=== PATIENT | male | born 1960 | race Caucasian/White ===

== ENCOUNTER 2018-02-21 21:33 | Inpatient (IN) ==
[2018-02-21] MEDS ORDERED: *HR* LORazepam 2 MG/ML VIAL IVP PRN ×3 (22:55)
[2018-02-21] MEDS ORDERED: Ipratropium/Albuterol Neb 3 ML IH PRN (22:57)
--- NOTE | 2018-02-21 23:09 | Internal Med History&Physical ---
<Nahun Delaney - Last Filed: 02/22/18 02:48> Date of Encounter: 02/22/18 Time of Encounter: 23:38 Internal Medicine - H&P: HPI Chief complaint: "I couldn't hardly walk" Admitted From: Emergency Dept Plans for Post Hospital Care: Home History of present illness: Mr. Elizabeth is a 57 year old male with history of COPD, alcoholism and tobacco abuse who presented to [facility] due to complaint of hard time walking and "everything was really fuzzy in my head". He says that this generally all started Thursday although he has had a difficult time breathing for approximately a week and a half. He says that he has never officially been diagnosed with COPD, however he suspects that he has had COPD for quite some time due to his long history of excessive smoking. He says that it started with generalized shortness of breath which was worsening with exertion, however it has regressed to worsen shortness of breath with productive cough over the past week and a half. It is been apparently particularly bad since Thursday at which time he apparently tried to see his primary care physician but was unable to get in with him. He said that in addition of this he has had a "fuzziness" in his head, and describes some confusion associated with this. He said that he has never had anything like this before. Nothing makes any of these symptoms any better, exertion does seem to make him worse. He says that the symptoms have worsened so significantly that he has been unable to work or perform his typical ADLs. He said today his symptoms were so significant that he finally decided to present to [facility] for workup. Denies history of seizures or DTs from alcohol. Denies history of hyponatremia. At [facility], the patient had an initial set of labs which demonstrated sodium 108, potassium 3.7, chloride 68, bicarbonate 34, BUNs 3, serum creatinine 0.51, glucose 110. His CBC demonstrated WBC 8.0, hemoglobin 17.6, hematocrit 47.5, platelet 129. He had an ethanol level of 83, INR 1.3 and a pro BNP of 1231. He did have an ABG at that time which demonstrated an arterial blood pH 7.43, PaCO2 60, PaO2 76. He was found to have an oxygen saturation at that time of 81%. He did have a head CT which was negative for any intracranial process as well as a chest CT which showed signs for infectious right bronchiolitis. At that time he got 1 L of normal saline as well as Rocephin and Solu-Medrol and was started on 125 mL an hour of normal saline. PMH: Suspected COPD, Alcoholism Social Hx: Lives at home with a roomate, smokes 2 ppd, smokes 1 joint marijuana per day, drinks 18 beers per day. Surgical Hx: Left shoulder replacement Family Hx: unremarkable Review of ECW reveals that the patient has history of HTN with recent addition of Amlodipine and HCTZ about 3 weeks ago. Internal Medicine - H&P: Meds Allergy/AdvReac Type Severity Reaction Status Date / Time No Known Allergies Allergy Verified 02/21/18 23:12 All Systems PM: A 10-system review of systems was performed and is negative for pertinent findings except as documented above in the HPI. Review of systems: Constitutional: Denies fevers, chills, weight loss, generalized fatigue Head/Neck: Denies SAENZ, neck stiffness EENT: Denies vision changes/blurriness, rhinorrhea, congestion, sore throat CVS: Admits to dyspnea on exertion as well as peripheral edema and orthopnea. Pulm: Admits to shortness of breath with cough and sputum production GI: Denies abdominal pain, nausea, vomiting, diarrhea, constipation, melena, hematemasis : Denies dysuria, increased frequency, urgency, hematuria Heme: Denies ease of bleeding or bruising MSK: Denies joint pain, limited ROM Skin: Denies rashes, ulcers, color changes Neuro: Denies SAENZ, paresthesias, focal deficits, ataxia. Admits to confusion and altered mental status - Constitutional Exam: Gen: Vitals noted. No acute distress. Generally uncooperative and poor historian Eyes: anicteric sclerae, moist conjunctivae; no lid-lag; Pupils equal and reactive to light HENT: Atraumatic; oropharynx clear with moist mucous membranes and no mucosal ulcerations; normal hard and soft palate Neck: Trachea midline; supple, no thyromegaly or lymphadenopathy Cardiac: RRR, no murmur, +S1/S2 Pulmonary: Severe inspiratory and expiratory wheezing noted bilaterally Abdomen: Distended but nontender, no guarding. No masses or hepatosplenomegaly MSK: ROM intact, no joint swelling noted Extremities: 3+ BLE edema, nontender calf, no cyanosis or clubbing Skin: Normal temperature, turgor and texture; no rash, ulcers or subcutaneous nodules Neuro: moves all extremities, no focal deficits. Psych: Appropriate mood and behavior. A&Ox3 Internal Med - H&P Results - Labs CBC & Chem 7: 02/21/18 23:56 02/21/18 23:10 - Assessment and plan (1) Hyponatremia Current Visit: Yes Status: Acute Assessment and plan: Severe hypotonic hyponatremia, chronicity is unknown however suspected acute On arrival, serum sodium 108, serum chloride 68, measured serum osmolality 226. Appears hypervolemic on exam The patient does have a urine osmolality 131, urine sodium less than 10 however recent history of HCTZ use Etiology likely secondary to beer potomania versus thiazide induced hyponatremia Patient reports mild symptoms of disorientation and weakness, no evidence of seizure activity Started on 125mL/hr NS at [facility] prior to arrival, saw no elevation in Serum Sodium Plan: Consulted Nephrology, Per Dr. Correia - Continue 75mL/hr normal saline, give 20mg PO Lasix. Q2h Sodium checks. Closely monitor neuro function. Carefully watch sodium, do not allow to rise greater than 116. Goal 6-8meq correction per 24h (2) COPD exacerbation Current Visit: Yes Status: Acute Assessment and plan: Acute exacerbation of COPD Shortness of breath, Hypoxia with SPO2 81% Severe inspiratory and expiratory wheezing on exam ABG 7.43/60/76/39 Plan BiPAP as Needed Scheduled and PRN Duonebs Solu-Medrol 40q8h Continuous pulse oximetry Supplemental O2 (3) Acute encephalopathy Current Visit: Yes Status: Acute Assessment and plan: Acute metabolic encephalopathy secondary to hyponatremia Head CT is essentially negative We will correct electrolyte abnormalities slowly Monitor neural response (4) Alcoholism Current Visit: Yes Status: Acute Assessment and plan: Alcoholism, poor control The patient states that he drinks approximately 18 beers per day On arrival, Ethanol level 83. Last beer at approximately 4pm He has no known history of DTs or Seizures We will place the patient on CIWA protocol, ativan PRN (5) Tobacco abuse Current Visit: Yes Status: Acute Assessment and plan: PRN Nicotine Patches (6) DVT prophylaxis Current Visit: Yes Status: Acute Assessment and plan: SQ Heparin - Time Spent With Patient Total time spent is greater than 50% in coordination of care (as documented) at patient's floor/unit and/or counseling patient: <Kyrie Yousif - Last Filed: 02/22/18 03:40> Date of Encounter: 02/22/18 Internal Medicine - H&P: HPI History of present illness: All Systems PM: A 10-system review of systems was performed and is negative for pertinent findings except as documented above in the HPI. - Constitutional Vitals: Pulse Resp BP Pulse Ox 75 18 179/88 93 02/22/18 01:00 02/22/18 01:00 02/22/18 01:00 02/22/18 01:00 Internal Med - H&P Results - Labs CBC & Chem 7: 02/21/18 23:56 02/22/18 02:29 Labs: Short CBC 02/21/18 Range/Units 23:56 WBC 6.1 (4.3-11.1) K/mcL Hgb 17.6 H (12.9-16.9) g/dL Hct 46.9 (37.5-50.1) % Plt Count 130 L (140-400) K/mcL Neutrophils # 5.7 (1.6-8.9) K/mcL BMP 02/21/18 23:10 Sodium 108 L* Potassium 3.5 Chloride 65 L Carbon Dioxide 32 H BUN 4 L Creatinine 0.48 L Glucose 149 H Calcium 8.7 Liver Function 02/21/18 Range/Units 23:10 Total Bilirubin 1.7 H (0.3-1.0) mg/dL Direct Bilirubin 0.5 H (0.0-0.2) mg/dL AST 32 (13-39) Units/L ALT 23 (7-52) Units/L Alkaline Phosphatase 113 H (34-104) Units/L Albumin 4.3 (3.5-5.7) g/dL Urine 02/21/18 Range/Units 23:35 Urine Color Yellow (Yellow) Urine Clarity Clear (Clear) Urine pH 6.0 (5.0-8.0) pH Units Ur Specific [place] 1.016 (1.010-1.025) Urine Protein Negative (Neg-Trace) mg/dL Urine Glucose (UA) Normal (Normal) mg/dL - Time Spent With Patient Total time spent is greater than 50% in coordination of care (as documented) at patient's floor/unit and/or counseling patient: - Attending Attestation I performed a history and physical exam of the patient and discussed management with the resident. I reviewed the resident's note and agree with the documented findings and plan of care. Gerardo Elizabeth is a 57 year old man with HTN, active smoker and alcohol abuse who is here on transfer from [facility] where he initially went to for difficulty breathing. He was seen to have signs of a COPD exacerbation and received breathing treatments which helped him. Incidentally on labs he was seen to have a serum sodium of 108 and chloride of 64. His mental status remained intact. Unfortunately prior to transfer he did not receive any fluids and was only started on route. On arrival here he is AAO x 3 but is a poor historian. He knows he takes something for blood pressure but cannot specify. He is chronically non-adherent to medical care but drinks 18 cans of beer daily. Diffuse wheezing auscultated in both lung pringle. Abdomen is protuberant but soft and non-tender. Lower extremity edema noted. Will admit to ICU for closer monitoring. Obtain serum and urine osm, urine sodium, uric acid, tsh. Concern for alcohol and diuretic induced hyponatremia. Records show that 3 weeks ago he had a rather normal sodium level. Fortunately he has no neurologic manifestations at this time. Will start IV NS and repeat levels. Nephrology will be consulted prior to attempting diuresis with furosemide in conjunction with the saline. Treat COPD exacerbation with steroids and nebulizer therapy. [facility] protocol for high risk of alcohol withdrawal. DVT prophylaxis indicated. SUE BALDWIN.
[2018-02-21 23:41] LABS: Prothrombin Time 11.6 Seconds (9.4-12.1)
[2018-02-21 23:44] LABS: Activated Partial Thrombo Time 34.2 Seconds (26.0-36.0)
[2018-02-21] MEDS ORDERED: Azithromycin 500 MG in D5% in Water 250 ML IVPB SCH (23:45)
[2018-02-21 23:47] LABS: Bilirubin,Urine Negative (Negative); Blood,Urine Negative (Negative); Clarity,Urine Clear (Clear); Color,Urine Yellow (Yellow); Glucose,Urine (UA) Normal (Normal); Ketones,Urine Negative (Negative); Leukocyte Esterase,Urine Negative (Negative); Nitrite,Urine Negative (Negative); Protein,Urine Negative (Neg-Trace); Specific Gravity,Urine 1.016 (1.010-1.025); Urobilinogen,Urine Normal (Normal)
[2018-02-21 23:47] LABS: Alanine Aminotransferase 23 Units/L (7-52); Albumin 4.3 g/dL (3.5-5.7); Albumin/Globulin Ratio 1.5 (1.1-2.2); Alkaline Phosphatase 113 Units/L (34-104); Aspartate Amino Transferase 32 Units/L (13-39); BUN/Creatinine Ratio 8 (6-26); Bilirubin,Direct 0.5 mg/dL (0.0-0.2); Bilirubin,Indirect 1.2 mg/dL (0.0-1.2); Bilirubin,Total 1.7 mg/dL (0.3-1.0); Blood Urea Nitrogen 4 mg/dL (6-20); Calcium 8.7 mg/dL (8.6-10.3); Carbon Dioxide 32 mEq/L (23-29); Chloride 65 mEq/L (98-107); Ethanol 20 mg/dL (Less than 10); Globulin 2.9 g/dL (2.4-3.5); Glucose 149 mg/dL (70-105); Magnesium 1.8 mg/dL (1.6-2.6); Osmolality,Calculated 226 (280-300); Phosphorous 2.9 mg/dL (2.7-4.5); Potassium 3.5 mEq/L (3.5-5.1); Sodium 108 mEq/L (136-145); Total Protein 7.2 g/dL (6.4-8.9); Uric Acid 5.3 mg/dL (2.3-7.6); eGFR For Non-African Americans > 60 (> 60)
[2018-02-21 23:59] LABS: Thyroid Stimulating Hormone 1.445 mcIU/mL (0.340-5.600)
[2018-02-22] MEDS ORDERED: methylPREDNISolone 125 MG/2 ML VIAL IVP SCH
[2018-02-22 00:19] LABS: Basophils % 0.2 %; Eosinophils # 0.1 K/mcL (0.0-0.6); Eosinophils % 1.1 %; Hematocrit 46.9 % (37.5-50.1); Hemoglobin 17.6 g/dL (12.9-16.9); Lymphocytes # 0.2 K/mcL (0.6-4.6); Mean Corpuscular Hemoglobin 33.3 pg (28.0-33.3); Mean Corpuscular Volume 88.8 fL (83.0-100.0); Mean Platelet Volume 8.2 fL (9.4-12.4); Monocytes % 0.7 %; Neutrophils # 5.7 K/mcL (1.6-8.9); Platelet Count 130 K/mcL (140-400); Red Blood Count 5.28 M/mcL (4.19-5.50); Red Cell Distribution Width 12.1 % (11.5-14.5)
[2018-02-22] MEDS: Ipratropium/Albuterol Neb 3 ML IH SCH ×7 (00:21→23:43)
[2018-02-22 00:29] LABS: Mean Corpuscular HGB Conc 37.5 g/dL (31.6-35.5)
[2018-02-22] MEDS ORDERED: 0.9 % Sodium Chloride 1,000 ML IVC SCH ×2 (00:45→01:40)
[2018-02-22] MEDS ORDERED: *HR* LORazepam 2 MG/ML VIAL IVP ONE (01:26)
[2018-02-22] MEDS ORDERED: Furosemide 40 MG TABLET PO ONE (01:39)
[2018-02-22] MEDS: *HR* Heparin 5,000 UNIT/ML VIAL SQ SCH ×2 (06:05→17:53)
[2018-02-22] MEDS: Folic Acid 1 MG TABLET PO SCH (07:45)
[2018-02-22] MEDS: Thiamine (B-1) 100 MG TABLET PO SCH (07:45)
[2018-02-22] MEDS: Vitamin B Complex/Vit C/Vit E 1 EACH TABLET PO SCH (07:45)
[2018-02-22] MEDS: MethylPREDNISolone 40 MG/ML VIAL IVP SCH ×2 (07:45→17:53)
[2018-02-22] MEDS: amLODIPine 5 MG TABLET PO SCH (07:45)
--- NOTE | 2018-02-22 09:10 | Pulmonology Consult Note ---
<Maryellen Simms - Last Filed: 02/22/18 13:40> Date of Encounter: 02/22/18 Time of Encounter: 09:30 Assessment and Plan (1) Hyponatremia Current Visit: Yes Status: Acute Severe hypotonic hyponatremia. History of heavy alcohol use. Recently started on HCTZ for HTN. Likely secondary to beer potomania. Possibly thiazide-induced. On presentation, Na decreased at 108, serum osmolality decreased at 226, urine osmolality decreased at 131, urine sodium <10. Appears euvolemic. Was given 1L NS at [facility]. Was given NS 75ml/hr and Lasix 20, per Nephrology Dr. Correia. Na improved to 112. Discontinued NS. Fluid restrict to <1L. Closely monitor Na, check q2h. Goal 6-8meq correction per 24h. Do not allow to rise >116. Nephrology consulted. (2) COPD exacerbation Current Visit: Yes Status: Acute History of heavy tobacco use 2ppd. Suspected diagnosis of COPD. APOLINAR, productive cough, severe wheezing, hypoxia 81%. At [facility], ABG showed pH of 7.43, pCO2 of 60, and pO2 of 76. At [facility], CT chest showed right infectious bronchiolitis. Received rocephin and solumedrol at [facility]. BiPAP as Needed Scheduled and PRN Duonebs Start symbicort. Solu-Medrol 40q8h Continuous pulse oximetry Supplemental O2 Continue day 1 of azithromycin. (3) Acute encephalopathy Current Visit: Yes Status: Resolved Acute metabolic encephalopathy secondary to hyponatremia At [facility], CT head is negative. We will correct electrolyte abnormalities slowly Resolved. Patient is alert and oriented. (4) Alcoholism Current Visit: Yes Status: Chronic History of heavy alcohol use, ~18 beers a day. Last beer at on 02/21 16:00. No history of seizure or DT. At [facility], EtOH level of 83. On presentation to [place], EtOH level of 20. CIWA protocol Ativan PRN (5) Tobacco abuse Current Visit: Yes Status: Chronic PRN Nicotine Patches (6) DVT prophylaxis Current Visit: Yes Status: Acute SQ Heparin History of Present Illness Consult date: 02/22/18 History of present illness: 57 year old male with medical history of heavy alcohol use, ~18 beers a day. Heavy tobacco use, 2ppd, with suspected COPD. HTN, recently started on amlodipine and HCTZ. Patient presented to [facility] with complaint of confusion and feeling fuzzy in the head for 3 days. Also complained of difficulty breathing with productive cough for 1.5 weeks. At [facility], patient was found to be hyponatremic at 108 with EtOH level of 83. Patient had oxygen saturation 81% with ABG showing pH 7.43, pCO2 60, and pO2 76. Patient was given rocephin, solumedrol, and 1L NS. Patient was transferred to [place] ICU for hyponatremia and COPD exacerbation. Patient seen and examined. No acute events overnight. Patient is resting comfortably in bed with BiPAP. Patient is alert and oriented. Patient states he feels fine. States he feels normal, just tired. Denies any other complaints. Denies chest pain, shortness of breath, nausea/vomiting, abdominal pain, swelling. Past Med Surg Social Fam HX - Past Medical History Additional medical history: Admits to drinking 18 beers daily/ smoker - Social History Smoking Status: Current every day smoker Packs per day: 2 Smokeless Tobacco Status: No Alcohol use: heavy, recent Drug use: marijuana Medications and Allergies Albuterol Neb [Proventil Neb] 2.5 mg IH Q4HR PRN 02/22/18 [History] Amlodipine Besylate 5 mg PO DAILY 02/22/18 [History] RX: Albuterol Sulfate [Albuterol Inhaler] 2 puff IH Q6H PRN 02/22/18 [History] RX: Budesonide/Formoterol 160/4.5 [Symbicort 160/4.5] 2 puff IH BID 02/22/18 [History] hydroCHLOROthiazide [Hydrochlorothiazide] 25 mg PO DAILY 02/22/18 [History] Allergy/AdvReac Type Severity Reaction Status Date / Time No Known Allergies Allergy Verified 02/21/18 23:12 All Systems: The remainder of the systems were reviewed and are negative Physical Examination Vital Signs: Vital Signs, Last 4 Hours Temp Pulse Resp BP Pulse Ox 02/22/18 08:00 98.9 F 02/22/18 07:23 12 94 02/22/18 06:00 97.5 F L 71 16 171/95 97 General appearance: no acute distress, alert Eyes: nonicteric Effort: normal Inspection: normal Auscultation: bilateral: wheezes (worse in right lung ) Cardiovascular: regular rate and rhythm Gastrointestinal: normoactive bowel sounds, soft, non-tender Integumentary: normal Extremities: no cyanosis, no edema, no clubbing, pink and warm Musculoskeletal: no deformities normal mental status, pupils equal and round mood appropriate, affect normal Results - Laboratory Findings CBC and BMP: 02/21/18 23:56 02/22/18 10:42 PT/INR, D-dimer PT 11.6 Seconds (9.4-12.1) 02/21/18 23:10 Abnormal lab findings: Abnormal lab results Hgb 17.6 g/dL (12.9-16.9) H 02/21/18 23:56 MCHC 37.5 g/dL (31.6-35.5) H 02/21/18 23:56 Plt Count 130 K/mcL (140-400) L 02/21/18 23:56 MPV 8.2 fL (9.4-12.4) L 02/21/18 23:56 Lymphocytes # 0.2 K/mcL (0.6-4.6) L 02/21/18 23:56 Sodium 112 mEq/L (136-145) L* 02/22/18 06:41 Chloride 65 mEq/L (98-107) L 02/21/18 23:10 Carbon Dioxide 32 mEq/L (23-29) H 02/21/18 23:10 BUN 4 mg/dL (6-20) L 02/21/18 23:10 Creatinine 0.48 mg/dL (0.70-1.30) L 02/21/18 23:10 Glucose 149 mg/dL (70-105) H 02/21/18 23:10 POC Glucose 150 mg/dL (70-99) H 02/21/18 23:04 Serum Osmolality 226 mOsm/kg (280-300) L 02/22/18 00:51 Calculated Osmolality 226 (280-300) L 02/21/18 23:10 Total Bilirubin 1.7 mg/dL (0.3-1.0) H 02/21/18 23:10 Direct Bilirubin 0.5 mg/dL (0.0-0.2) H 02/21/18 23:10 Alkaline Phosphatase 113 Units/L (34-104) H 02/21/18 23:10 Urine Osmolality 131 mOsm/kg (300-1090) L 02/21/18 22:53 Ethyl Alcohol 20 mg/dL (Less than 10) H 02/21/18 23:10 - Clinical Findings Intake & Output: Intake & Output 02/21/18 02/22/18 02/22/18 23:59 07:59 15:59 Intake Total 925 / 925 Output Total 475 / 475 1500 / 1500 900 / 900 Balance -475 / -475 -575 / -575 -900 / -900 Weight 121.6 kg Consult Discharge Plan - Plan Referrals: Lopez Brito DO [Primary Care Provider] - <Tera Oh - Last Filed: 02/23/18 15:44> Date of Encounter: 02/23/18 All Systems: The remainder of the systems were reviewed and are negative Physical Examination Vital Signs: Vital Signs, Last 4 Hours Temp Resp Pulse Ox 02/22/18 08:00 98.9 F 02/22/18 07:23 12 94 Results - Laboratory Findings CBC and BMP: 02/23/18 04:06 02/23/18 14:43 PT/INR, D-dimer PT 11.6 Seconds (9.4-12.1) 02/21/18 23:10 Abnormal lab findings: Abnormal lab results Hgb 17.6 g/dL (12.9-16.9) H 02/21/18 23:56 MCHC 37.5 g/dL (31.6-35.5) H 02/21/18 23:56 Plt Count 130 K/mcL (140-400) L 02/21/18 23:56 MPV 8.2 fL (9.4-12.4) L 02/21/18 23:56 Lymphocytes # 0.2 K/mcL (0.6-4.6) L 02/21/18 23:56 Sodium 115 mEq/L (136-145) L* 02/22/18 08:44 Chloride 65 mEq/L (98-107) L 02/21/18 23:10 Carbon Dioxide 32 mEq/L (23-29) H 02/21/18 23:10 BUN 4 mg/dL (6-20) L 02/21/18 23:10 Creatinine 0.48 mg/dL (0.70-1.30) L 02/21/18 23:10 Glucose 149 mg/dL (70-105) H 02/21/18 23:10 POC Glucose 150 mg/dL (70-99) H 02/21/18 23:04 Serum Osmolality 226 mOsm/kg (280-300) L 02/22/18 00:51 Calculated Osmolality 226 (280-300) L 02/21/18 23:10 Total Bilirubin 1.7 mg/dL (0.3-1.0) H 02/21/18 23:10 Direct Bilirubin 0.5 mg/dL (0.0-0.2) H 02/21/18 23:10 Alkaline Phosphatase 113 Units/L (34-104) H 02/21/18 23:10 Urine Osmolality 131 mOsm/kg (300-1090) L 02/21/18 22:53 Ethyl Alcohol 20 mg/dL (Less than 10) H 02/21/18 23:10 - Clinical Findings Intake & Output: Intake & Output 02/21/18 02/22/18 02/22/18 23:59 07:59 15:59 Intake Total 925 / 925 Output Total 475 / 475 1500 / 1500 900 / 900 Balance -475 / -475 -575 / -575 -900 / -900 Weight 121.6 kg - Attending Attestation I examined this patient and my medical decision-making was reviewed with the Resident Physician. I agree with the documented findings, disposition and treatment plan as described except to the extent set forth below. Patient seen and examined. Labs, radiology, chart personally reviewed. Agree with resident's history and physical, assessment, plan with following comments: CAR FILLER: Patient follows commands, Pt has history of alcohol abuse and he is no CIWY protocol. Pulmonary: Acceptable oxygenation and ventilation and he has clinically AECOP. Pt to be on bronchodilators and start on steroid. Suspect sleep apnea that needs to be addressed as outpatient and he will need sleep study. His hypoxia most likely is chronic secondary to COPD, however at this time will be acute hypoxic respiratory failure and needs to be reevaluated when patient get ready to discharge home. Patient with significant smoking history and he was advised to quit smoking and drinking significant amount of alcohol. Cardiovascular: stable GI: Nutrition per dietary and GI prophylaxis per routine Heme: DVT prophylaxis per routine ID: Empiic Azithromycin for AECOPD Renal; urine out put and renal funtion reviewed. Fluid restriction and hold NS for now. Endorcine: blood glucose is monitored Lines: all lines checked and no evidence of infections Skin: skin care to prevent pressure ulcers per nursing routine care
--- NOTE | 2018-02-22 09:44 | Internal Med Progress Note ---
<Hima Gomez - Last Filed: 02/22/18 16:39> Hospitalist Progress Note - Encounter Date of Encounter: 02/22/18 Time of Encounter: 09:25 - Subjective Interval History: Mr. Elizabeth is a 57 year old male evaluated bedside who presented to [facility] on 02/21/18 with difficulty ambulating and "fuzzy in the head". Patient was found to have significant hyponatremia, value of 108 at 2310 02/21/18; most recently 114 at 1042 02/22/18, as well as a significant smoking history with suspected COPD and history of current alcoholism and marijuana use. Patient reports fatigue, forgetfulness, confusion, blurry vision and cough with clear, thick and moist sputum, but denies headache, lethargy, nausea, vomiting, dizziness, gait abnormalities, neck stiffness, shortness of breath, and abdominal pain. Patient also denies paresthesias, any focal neurological deficits, ataxia or altered mental status. No history of seizures, coma, obtundation or respiratory arrest. He was taking 75 mL/hr of normal saline, 20 mg PO Lasix one time and q2h serum sodium checks per nephrology with goal of 6-8 mEq Na increase over 24 hours. With current level of 114, Nephrology recommendation was to take patient off NS, and put patient back on NS or PO supplementation if sodium decreases. He is also taking thiamine, folic acid, B/C/E vitamins for alcoholism as well as BiPAP (85% O2 Sat upon admission, 95% at time of exam), methylprednisolone, and duoneb for COPD. 1 beer per meal prescribed to prevent alcohol withdrawal symptoms, as patient does not have desire to quit alcohol. Amlodipine, hydralazine and lopressor for chronic HTN (amlodipine and lopressor home meds) - Exam Vitals: Temp Pulse Resp BP Pulse Ox 98.9 F 71 12 171/95 94 02/22/18 08:00 02/22/18 06:00 02/22/18 07:23 02/22/18 06:00 02/22/18 07:23 Exam: General: awake, no acute distress HEENT: normocephalic, mucus membranes moist CV: regular rate and rhythm, no murmurs Pulm: Wheezes noted bilaterally on inspiration and expiration, BiPAP switched to nasal cannula Abdomen: distended, nontender, no guarding. Bowel sounds present Neuro: movement of all extremities noted, no focal deficits noted Psych: A&Ox3, normal mood and affect - Assessment and Plan (1) Hyponatremia Current Visit: Yes Status: Acute Assessment and Plan: Hypovolemic hypotonic hyponatremia suspected to be secondary to low solute intake due to alcohol abuse. Upon arrival at 2310 02/21/18, sodium was 108. Most recent at 1042 02/22/18 was 114. Patient reports mild disorientation and no weakness, no evidence of seizure activity. Urine osmolality 131, urine sodium <10.0, serum osmolality 226 Per Nephrology, normal saline was discontinued for patient due to 115 sodium this morning. Restart NS or PO supplementation if rise in sodium is low. Continue to closely monitor neuro function. Carefully watch sodium, do not allow to rise greater than 116. Recheck Sodium q2h Goal 6-8meq correction per 24h (2) COPD exacerbation Current Visit: Yes Status: Acute Assessment and Plan: Acute exacerbation of COPD suspected due to smoking Shortness of breath, Hypoxia with SPO2 81% on admission; currently SPO2 at 95% with BiPAP. Patient removed BiPAP, now on nasal cannula 6L, O2 normal Inspiratory and expiratory wheezes noted on exam, CT demonstrated infectious R bronchiolitis Continue nasal cannula as needed, scheduled and PRN Duonebs, methylprednisolone 40 q8h. For acute exacerbation, continue methylprednisolone 40 q8h for 1 more day and Zithromax 7 day course (received one dose Zithromax in 250mL D5 on ) Continuous pulse oximetry, Supplemental O2 (3) Acute encephalopathy Current Visit: Yes Status: Acute Assessment and Plan: Acute metabolic encephalopathy secondary to hyponatremia Alert and oriented x3 today, appears to be improving Head CT was reported to be essentially negative Correct electrolyte abnormalities slowly and monitor neural response (4) Alcoholism Current Visit: Yes Status: Chronic Assessment and Plan: Alcoholism, poor control The patient states that he drinks approximately 18 beers per day. Has no desire to quit. On arrival, Ethanol level 83. Last beer at approximately 1600 02/21/18 No known history of DTs or Seizures Patient counselled on cessation Add 1 beer with each meal; continue CIWA protocol and lorazepam PRN for seizures. Continue thiamine, folic acid and multivitamin (B/C/E) (5) DVT prophylaxis Current Visit: Yes Status: Acute Assessment and Plan: Patient is on 5000 units Heparin SQ q12h. Continue for DVT prophylaxis (6) Tobacco abuse Current Visit: Yes Status: Chronic Assessment and Plan: Nicotine patches PRN (7) Hypertension Current Visit: Yes Status: Chronic Assessment and Plan: Elevated most recently at 183/89. 10 mg IVP hydralazine given for HTN Recently started outpatient medications per H&P Continue home meds Amlodipine 5mg PO daily and Lopressor 5mg q6h PRN. Continue Hydralazine PRN Continue monitoring blood pressure DVT Prophylaxis: 5000 units SQ Heparin q12h - Time Spent with Patient Total time spent is greater than 50% in coordination of care (as documented) at patient's floor/unit and/or counseling patient: less than 15 minutes Internal Medicine: Result - Labs CBC & Chem 7: 02/21/18 23:56 02/22/18 14:04 Labs: Short CBC 02/21/18 Range/Units 23:56 WBC 6.1 (4.3-11.1) K/mcL Hgb 17.6 H (12.9-16.9) g/dL Hct 46.9 (37.5-50.1) % Plt Count 130 L (140-400) K/mcL Neutrophils # 5.7 (1.6-8.9) K/mcL BMP 02/21/18 02/22/18 02/22/18 23:10 02:29 04:36 Sodium 108 L* 110 L* 112 L* Potassium 3.5 Chloride 65 L Carbon Dioxide 32 H BUN 4 L Creatinine 0.48 L Glucose 149 H Calcium 8.7 02/22/18 06:41 Sodium 112 L* Potassium Chloride Carbon Dioxide BUN Creatinine Glucose Calcium Liver Function 02/21/18 Range/Units 23:10 Total Bilirubin 1.7 H (0.3-1.0) mg/dL Direct Bilirubin 0.5 H (0.0-0.2) mg/dL AST 32 (13-39) Units/L ALT 23 (7-52) Units/L Alkaline Phosphatase 113 H (34-104) Units/L Albumin 4.3 (3.5-5.7) g/dL Urine 02/21/18 Range/Units 23:35 Urine Color Yellow (Yellow) Urine Clarity Clear (Clear) Urine pH 6.0 (5.0-8.0) pH Units Ur Specific [place] 1.016 (1.010-1.025) Urine Protein Negative (Neg-Trace) mg/dL Urine Glucose (UA) Normal (Normal) mg/dL - ABG Interpretation ABG results: PT/INR, D-dimer PT 11.6 Seconds (9.4-12.1) 02/21/18 23:10 Consult Discharge Plan - Plan Referrals: Lopez Brito, [Primary Care Provider] - <John Short - Last Filed: 02/22/18 20:10> Hospitalist Progress Note - Encounter Date of Encounter: 02/22/18 - Exam Vitals: Temp Pulse Resp BP Pulse Ox 98.9 F 74 16 144/76 95 02/22/18 19:50 02/22/18 19:00 02/22/18 19:51 02/22/18 19:51 02/22/18 19:51 - Assessment and Plan (1) Acute metabolic encephalopathy Current Visit: Yes Status: Acute Assessment and Plan: Slowly improving with correction of sodium. (2) Hyponatremia Current Visit: Yes Status: Acute (3) Hypertension Current Visit: Yes Status: Chronic (4) COPD exacerbation Current Visit: Yes Status: Acute (5) Chronic alcohol abuse Current Visit: Yes Status: Chronic Assessment and Plan: Monitoring for sign of withdrawal. (6) Tobacco abuse Current Visit: Yes Status: Chronic - Time Spent with Patient Total time spent is greater than 50% in coordination of care (as documented) at patient's floor/unit and/or counseling patient: 25 - 35 minutes Internal Medicine: Result - Labs CBC & Chem 7: 02/21/18 23:56 02/22/18 18:27 Labs: Short CBC 02/21/18 Range/Units 23:56 WBC 6.1 (4.3-11.1) K/mcL Hgb 17.6 H (12.9-16.9) g/dL Hct 46.9 (37.5-50.1) % Plt Count 130 L (140-400) K/mcL Neutrophils # 5.7 (1.6-8.9) K/mcL BMP 02/21/18 02/22/18 02/22/18 23:10 02:29 04:36 Sodium 108 L* 110 L* 112 L* Potassium 3.5 Chloride 65 L Carbon Dioxide 32 H BUN 4 L Creatinine 0.48 L Glucose 149 H Calcium 8.7 02/22/18 02/22/18 02/22/18 06:41 08:44 10:42 Sodium 112 L* 115 L* 114 L* Potassium Chloride Carbon Dioxide BUN Creatinine Glucose Calcium 02/22/18 02/22/18 02/22/18 14:04 16:41 18:27 Sodium 116 L* 118 L* 119 L* Potassium Chloride Carbon Dioxide BUN Creatinine Glucose Calcium Liver Function 02/21/18 Range/Units 23:10 Total Bilirubin 1.7 H (0.3-1.0) mg/dL Direct Bilirubin 0.5 H (0.0-0.2) mg/dL AST 32 (13-39) Units/L ALT 23 (7-52) Units/L Alkaline Phosphatase 113 H (34-104) Units/L Albumin 4.3 (3.5-5.7) g/dL Urine 02/21/18 Range/Units 23:35 Urine Color Yellow (Yellow) Urine Clarity Clear (Clear) Urine pH 6.0 (5.0-8.0) pH Units Ur Specific [place] 1.016 (1.010-1.025) Urine Protein Negative (Neg-Trace) mg/dL Urine Glucose (UA) Normal (Normal) mg/dL - ABG Interpretation ABG results: PT/INR, D-dimer PT 11.6 Seconds (9.4-12.1) 02/21/18 23:10 - Attending Attestation The history, physical exam, and medical decision making was performed by the medical student either while I was physically present and actively involved or I personally re-performed the exam and medical decision making. I have verified the accuracy of the medical student's documentation with regards to the history, physical exam findings, and medical decision making on 02/22/18. Mr Elizabeth is currently admitted for severe hyponatremia. He remains moderate to high risk due to potential for worsening clinical status. Mr Elizabeth is alert and interactive. His sodium is increasing slowly. His BP is increasing but he has no tremor or other sign of withdrawal. No fever or chills. No CP or SOB. Exam alert Comfortable in bed Mucus membranes dry Heart distant and regular. Not tachy Lungs diminished Abd distended. Soft. Nontender Moves all extremities. No focal deficit. Pulses palpable I/P 1. Hyponatremia - slowly increasing. Appreciate nephro input. 2. ETOH abuse - monitoring for withdrawal 3. COPD exac - on steroids and abx. Aerosols and oxygen. 4. Metabolic encephalopathy - seems to be improving with correction of sodium. 5. HTN - adjusting meds. May be early ETOH withdrawal. Further diagnoses and plan as above. <Hima Gomez D - Last Filed: 02/22/18 16:39> (7) Hypertension Qualifiers: Hypertension type: essential hypertension Qualified Code(s): I10 - Essential (primary) hypertension <John Short - Last Filed: 02/22/18 20:10> (3) Hypertension Qualifiers: Hypertension type: essential hypertension Qualified Code(s): I10 - Essential (primary) hypertension
[2018-02-22] MEDS ORDERED: *HR* Metoprolol 5 MG/5 ML VIAL IVP PRN (09:49)
[2018-02-22] MEDS: Budesonide/Formoterol 160/4.5 1 PUFF INH IH SCH ×2 (11:05→19:51)
[2018-02-22] MEDS ORDERED: *HR* Metoprolol 5 MG/5 ML VIAL IVP ONE (13:37)
--- NOTE | 2018-02-22 13:39 | Nephrology Consult Note ---
<IoanaadeleShubham tinajero - Last Filed: 02/22/18 15:24> Date of Encounter: 02/22/18 Time of Encounter: 11:00 Assessment and Plan (1) Hyponatremia Current Visit: Yes Status: Acute - Noted hyponatremia at 108 on presentation - Etiology at this time is most likely consistent with acute hypovolemic hyponatremia - Likely secondary to low solute intake with chronic alcoholism - Sodium improved from presentation from 108 to 110/112/112/115--- 114 most recently - Started on NS with improvement as well as lasix 20 mg PO once - NS has been shut off due to rapid improvement - Goal Na of around 116 in the first 24 hours - urine Na of <20 indicates hypovolemia, Urine osm <200 indicates appropriate compensation - Recent Na of 133 on 02/03/18, acute in nature Plan - Patient is tolerating diet, recommend continuing PO intake and monitoring - Continue to hold NS with q2 hour Na checks - Consider restarting NS or PO supplementation if remains low. Will continue to follow - Does not appear fluid overloaded on exam - Will also check TSH with AM labs. (2) Acute encephalopathy Current Visit: Yes Status: Acute - Likely secondary to alcohol intoxication vs hyponatremia - Continue management as above - Supportive care for alcholism. (3) Alcoholism Current Visit: Yes Status: Chronic - Reportedly drinks 18 beers daily, possibly more - [facility] protocol in place - Continue folic acid and thiamine. - Further management per primary team (4) Hypertension Current Visit: Yes Status: Chronic - Elevated most recently at 183/89 - Recently started outpatient medications per H&P - Amlodipine ordered - Hydralazine and lopressor both ordered by primary team Qualifiers: Hypertension type: essential hypertension Qualified Code(s): I10 - Essential (primary) hypertension History of Present Illness - Reason for Consult Consult date: 02/22/18 hyponatremia - Chief Complaint dizziness - History of Present Illness Mr. Elizabeth presented to the emergency room in [facility] due to complaints of "I cannot hardly walk". Nephrology was consulted on 02/22/18 for assistance of management of hyponatremia. Mr. Elizabeth has a past medical history of COPD, alcoholism, tobacco abuse, h ypertension. He states he drinks approximately 18 beers per night however per nursing report, his daughter stated that it is likely more than this. Per chart review, patient reportedly had a complaint of a hard time walking and everything was "really fuzzy in his head ". Onset of symptoms was reportedly Thursday and he also had complaint of shortness of breath for the last week and a half. Short ness breath was worsened with exertion and also was associated with a productive cough. He also does describe some confusion and he has never experienced anything like this in the past. He denies any histories of seizures or alcohol withdrawal. In the [facility] emergency room, labs were significant for sodium of 108, potassium 3.7, chloride 68, bicarbonate 34, BUNs/creatinine of 3/0.51. Glucose was within normal limits. Hemoglobin was also elevated at 17.6 and hematocrit was borderline at 47.5, platelets were 129. Ethanol level was elevated at 83. INR was 1.3 and BNP was 1231. Arterial blood gas was obtained and showed metabolic alkalosis. Head CT was negative for any acute process and chest CT was also obtained which showed signs for infectious right bronchiolitis. He did receive 1 L of normal saline and was started on maintenance saline. On presentation to [place], he was admitted directly to the ICU. Vital signs were significant for a respiratory rate of 20 and he was tolerating 93% oxygen on 4 L nasal cannula. Further labs were obtained and again demonstrated a sodium of 108, chloride 65, carbonate 32, unremarkable kidney function, serum osmolality measured at 226, normal liver function except for mildly elevated alkaline phosphatase at 113, urine osmolality at 131 and urine sodium less than 10. Today during interview, patient states that he is feeling better. He is denying any symptoms at this time. Denies any confusion, dizziness, shortness of breath, pain. He states that normally he does have a good appetite and diet which is actually high in salt. When asked about the last couple days, he does state that his diet has been less. He states that he drinks about 18 beers per day and has not been eating well. He is generally cooperative with exam but s eems to be have difficulty remembering facts and recalling recent events. He is also difficult to understand secondary to slurring. Past Med Surg Social Fam HX - Past Medical History Additional medical history: Admits to drinking 18 beers daily/ smoker - Social History Smoking Status: Current every day smoker Packs per day: 2 Smokeless Tobacco Status: No Alcohol use: heavy, recent Drug use: marijuana Medications and Allergies Albuterol Neb [Proventil Neb] 2.5 mg IH Q4HR PRN 02/22/18 [History] Albuterol Sulfate [Albuterol Inhaler] 2 puff IH Q6H PRN 02/22/18 [History] Amlodipine Besylate 5 mg PO DAILY 02/22/18 [History] Budesonide/Formoterol 160/4.5 [Symbicort 160/4.5] 2 puff IH BID 02/22/18 [History] hydroCHLOROthiazide [Hydrochlorothiazide] 25 mg PO DAILY 02/22/18 [History] Allergy/AdvReac Type Severity Reaction Status Date / Time No Known Allergies Allergy Verified 02/21/18 23:12 Review of Systems ROS unobtainable: due to mental status All Systems review (narrative): - Admits to confusion. Constitutional: Denies fevers, chills, weight loss, generalized fatigue - Head/Neck: Denies SAENZ, neck stiffness - CVS: Denies chest pain, palpitations, GALVAN, orthopnea, edema, PND, - Pulm: shortness of breath, cough, sputum. Denies hematemesis, wheezing - GI: Denies abdominal pain, anorexia, nausea, vomiting, diarrhea, constipation, melena - : Denies dysuria, increased frequency, urgency, hematuria, - Skin: Denies rashes, ulcers, color changes, - Neuro: Admits to difficulty walking. Denies SAENZ, paresthesias, focal deficits, ataxia, Exam - Vital Signs Vital signs: Initial Vital Signs Pulse Resp BP Pulse Ox 73 20 147/80 93 02/21/18 23:00 02/21/18 23:00 02/21/18 23:00 02/21/18 23:00 Vital Signs - Last 8 Hours Temp Pulse Resp BP Pulse Ox 02/22/18 13:22 99.3 F 84 14 183/89 96 02/22/18 12:00 98.3 F 78 14 156/96 91 02/22/18 11:08 16 93 02/22/18 10:43 82 166/88 94 02/22/18 10:38 81 14 175/108 95 02/22/18 08:00 98.9 F 02/22/18 07:23 12 94 02/22/18 06:00 97.5 F L 71 16 171/95 97 Intake and Output 02/21/18 02/22/18 02/22/18 23:59 07:59 15:59 Intake Total 925 / 925 Output Total 475 / 475 1500 / 1500 1625 / 1625 Balance -475 / -475 -575 / -575 -1625 / -1625 Intake: IV Fluids 925 / 925 0.9 % Sodium Chloride 1,000 ML 675 / 675 @ 75 mls/hr IVC .[id number] [facility] Rx #:[id number] Zithromax 500 mg In Dextrose 5% 250 / 250 250 ML @ 252 mls/hr IVPB Q24H [facility] Rx#:[id number] Output: Urine 475 / 475 1500 / 1500 1625 / 1625 Other: Weight 121.6 kg Blood Glucose* 150 - General Appearance Exam: Gen.: Vitals noted. No acute distress. Alert and oriented to self. Disheveled, poor grooming, slurs some words HEENT: PERRL/EOMI, oropharynx clear, Normocephalic, atraumatic, MMM Cardiac: RRR, no murmur, +S1/S2 Pulmonary: Coarse breath sounds diffusely with bilateral lower wheezes. equal chest expansion Abdomen: soft, nontender, BS noted, no guarding, no rebound. No appreciated hepatosplenomegaly MSK: no joint swelling noted Extremities: 1+ BLE edema, nontender calf, no cyanosis or clubbing Neuro: A&Ox1, moves all extremities, no focal deficits Psych: Appropriate mood and behavior Results - Lab Results 02/21/18 23:56 02/22/18 14:04 Most recent lab results Calcium 8.7 mg/dL (8.6-10.3) 02/21/18 23:10 Phosphorus 2.9 mg/dL (2.7-4.5) 02/21/18 23:10 Magnesium 1.8 mg/dL (1.6-2.6) 02/21/18 23:10 Urine Sodium < 10.0 mEq/L 02/21/18 22:53 Consult Discharge Plan - Plan Referrals: Lopez Brito DO [Primary Care Provider] - <Elizabeth Hall - Last Filed: 02/22/18 19:37> Date of Encounter: 02/22/18 Exam - Vital Signs Vital signs: Initial Vital Signs Pulse Resp BP Pulse Ox 73 20 147/80 93 02/21/18 23:00 02/21/18 23:00 02/21/18 23:00 02/21/18 23:00 Vital Signs - Last 8 Hours Temp Pulse Resp BP Pulse Ox 02/22/18 17:40 98.1 F 75 14 146/69 91 02/22/18 16:26 98.4 F 82 14 160/79 95 02/22/18 15:23 20 93 02/22/18 15:14 98.5 F 77 12 176/96 93 02/22/18 14:34 73 14 161/86 89 02/22/18 13:22 99.3 F 84 14 183/89 96 02/22/18 12:00 98.3 F 78 14 156/96 91 Intake and Output 02/22/18 02/22/18 02/22/18 07:59 15:59 23:59 Intake Total 925 / 925 Output Total 1500 / 1500 2195 / 2195 300 / 300 Balance -575 / -575 -2195 / -2195 -300 / -300 Intake: IV Fluids 925 / 925 0.9 % Sodium Chloride 1,000 ML 675 / 675 @ 75 mls/hr IVC .[id number] [facility] Rx #:[id number] Zithromax 500 mg In Dextrose 5% 250 / 250 250 ML @ 252 mls/hr IVPB Q24H [facility] Rx#:[id number] Output: Urine 1500 / 1500 2195 / 2195 300 / 300 Results - Lab Results 02/21/18 23:56 02/22/18 18:27 Most recent lab results Calcium 8.7 mg/dL (8.6-10.3) 02/21/18 23:10 Phosphorus 2.9 mg/dL (2.7-4.5) 02/21/18 23:10 Magnesium 1.8 mg/dL (1.6-2.6) 02/21/18 23:10 Urine Sodium < 10.0 mEq/L 02/21/18 22:53 - Attending Attestation I examined this patient and my medical decision-making was reviewed with the Resident Physician. I agree with the documented findings, disposition and treatment plan as described except to the extent set forth below. Pt seen and examined and in brief; 57 y o male with PMH of HTN and EtOH abuse (at least 18 beers a day) admitted with altered mental status with sodium of 108, previously 133 earlier this month. Labs consistent with hypovolemia hyponatremia in the setting of beer potomania with recent decreased po intake. Exam showed older male who appeared older than stated age, lung with good areation and trace LE edema noted. Agree with NS initially but will stop due to rapid improvement. Continue serial sodium checks but not as frequently q6 adeq uate. Continue give regular diet with salt packets. Continue EtOH withdrawal protocol per primary team along with MVI, thamine and folate.
[2018-02-22] MEDS: Beer can PO SCH (17:20)
[2018-02-23] MEDS: MethylPREDNISolone 40 MG/ML VIAL IVP SCH ×4 (00:02→22:58)
[2018-02-23] MEDS: Ipratropium/Albuterol Neb 3 ML IH SCH ×6 (03:41→22:58)
[2018-02-23 04:45] LABS: Hematocrit 45.6 % (37.5-50.1); Immature Granulocytes % 0.7 % (0-4); Lymphocytes # 0.2 K/mcL (0.6-4.6); Lymphocytes % 3.5 %; Mean Corpuscular HGB Conc 36.4 g/dL (31.6-35.5); Mean Corpuscular Hemoglobin 33.4 pg (28.0-33.3); Mean Corpuscular Volume 91.8 fL (83.0-100.0); Mean Platelet Volume 8.2 fL (9.4-12.4); Monocytes # 0.2 K/mcL (0.0-1.3); Neutrophils # 5.2 K/mcL (1.6-8.9); Platelet Count 135 K/mcL (140-400); Red Blood Count 4.97 M/mcL (4.19-5.50); Red Cell Distribution Width 12.6 % (11.5-14.5); Segmented Neutrophils % 92.8 %
[2018-02-23 05:15] LABS: BUN/Creatinine Ratio 13 (6-26); Blood Urea Nitrogen 7 mg/dL (6-20); Calcium 9.1 mg/dL (8.6-10.3); Carbon Dioxide 44 mEq/L (23-29); Chloride 76 mEq/L (98-107); Glucose 163 mg/dL (70-105); Osmolality,Calculated 262 (280-300); Potassium 3.5 mEq/L (3.5-5.1); Sodium 125 mEq/L (136-145); eGFR For Non-African Americans > 60 (> 60)
[2018-02-23 05:18] LABS: Hemoglobin 16.6 g/dL (12.9-16.9)
[2018-02-23] MEDS ORDERED: Azithromycin 250 MG in D5% in Water 250 ML IVPB SCH ×2 (06:00→06:15)
[2018-02-23] MEDS: *HR* Heparin 5,000 UNIT/ML VIAL SQ SCH ×2 (06:13→16:44)
[2018-02-23] MEDS: Budesonide/Formoterol 160/4.5 1 PUFF INH IH SCH ×3 (07:20→20:09)
[2018-02-23] MEDS: Thiamine (B-1) 100 MG TABLET PO SCH (07:47)
[2018-02-23] MEDS: Folic Acid 1 MG TABLET PO SCH (07:47)
[2018-02-23] MEDS: amLODIPine 5 MG TABLET PO SCH (07:47)
[2018-02-23] MEDS: Beer can PO SCH (07:47)
[2018-02-23] MEDS: Vitamin B Complex/Vit C/Vit E 1 EACH TABLET PO SCH (07:47)
--- NOTE | 2018-02-23 08:00 | Pulmonology Progress Note ---
Addendum entered and electronically signed by Maryellen Simms 02/23/18 13:00: Adding another diagnosis: 8) Acute Respiratory Failure with Hypercapnia and Hypoxia Secondary to COPD exacerbation See plan #2 Original Note: <Maryellen iSmms - Last Filed: 02/23/18 11:25> Date of Encounter: 02/23/18 Time of Encounter: 08:00 Assessment and Plan (1) Hyponatremia Current Visit: Yes Status: Acute Severe hypotonic hyponatremia. History of heavy alcohol use. Recently started on HCTZ on 02/16. Likely secondary to beer potomania and impaired ADH suppression. Possibly thiazide-induced. On presentation, Na decreased at 108, serum osmolality decreased at 226, urine osmolality decreased at 131, urine sodium <10. Appears euvolemic on exam. Was given 1L NS at [facility]. Was given NS 75ml/hr and Lasix 20, per Nephrology Dr. Correia. Na improved to 112. Discontinued NS and fluid restricted to <1L. Last night, Na improved to 121. This morning, Na level of 125. Continue fluid restriction <1L today. Closely monitor Na, check q2h. Goal 6-12meq correction per 24h. Nephrology consulted and following. Na improved and patient feeling better. Will transfer to floor today. Critical Care will sign out at this time. (2) COPD exacerbation Current Visit: Yes Status: Acute History of heavy tobacco use 2ppd. Suspected diagnosis of COPD. Presented with APOLINAR, productive cough, severe wheezing, hypoxia 81%. At [facility], ABG showed pH of 7.43, pCO2 of 60, and pO2 of 76. At [facility], CT chest showed right infectious bronchiolitis. Received rocephin and solumedrol at [facility]. BiPAP as Needed Scheduled and PRN Duonebs Symbicort. Solu-Medrol 40q8h - day 2. Continuous pulse oximetry Supplemental O2 Continue day 2 of azithromycin. (3) Acute encephalopathy Current Visit: Yes Status: Resolved Acute metabolic encephalopathy secondary to hyponatremia and alcohol intoxication At [facility], CT head is negative. We will correct electrolyte abnormalities slowly Encephalopathy is resolved. Patient is alert and oriented. (4) Alcoholism Current Visit: Yes Status: Chronic History of heavy alcohol use, ~18 beers a day. Last beer on 02/21 16:00. No history of seizure or DT. At [facility], EtOH level of 83. On presentation to [place], EtOH level of 20. [facility] protocol Ativan PRN Folic acid, thiamine, multivitamin Social work consulted. (5) Hypertension Current Visit: Yes Status: Chronic History of HTN. Recently started on Norvasc and HCTZ. Hold HCTZ Continue amlodipine Lopressor prn. Qualifiers: Hypertension type: essential hypertension Qualified Code(s): I10 - Essential (primary) hypertension (6) Tobacco abuse Current Visit: Yes Status: Chronic PRN Nicotine Patches (7) DVT prophylaxis Current Visit: Yes Status: Acute SQ Heparin Subjective Interval history: Patient seen and examined. No acute events overnight. Patient is resting comfortably in bed and has eaten his breakfast. Patient states that hes fine. Patient denies any complaints and states he feels normal. States he wants to go home. Denies chest pain, shortness of breath, confusion, dizziness, fatigue, abdominal pain, nausea/vomiting, swelling. Patient feeling much better and Na is improved. Will transfer out of ICU to floor today. Objective PUL Vital signs: Last Vital Signs Temp 98.1 F 02/23/18 07:00 Pulse 75 02/23/18 07:00 Resp 16 02/23/18 07:20 BP 141/78 02/23/18 07:20 Pulse Ox 93 02/23/18 07:20 General appearance: no acute distress, alert Eyes: nonicteric Neck: supple Effort: normal Auscultation: bilateral: wheezes (diffuse wheezing, worse on right) Cardiovascular: regular rate and rhythm Gastrointestinal: normoactive bowel sounds, soft, non-tender Integumentary: normal Extremities: no cyanosis, no edema, no clubbing, pink and warm Musculoskeletal: no deformities normal mental status Results - Laboratory Findings CBC and BMP: 02/23/18 04:06 02/23/18 08:37 PT/INR, D-dimer PT 11.6 Seconds (9.4-12.1) 02/21/18 23:10 Abnormal lab findings: Abnormal lab results MCH 33.4 pg (28.0-33.3) H 02/23/18 04:06 MCHC 36.4 g/dL (31.6-35.5) H 02/23/18 04:06 Plt Count 135 K/mcL (140-400) L 02/23/18 04:06 MPV 8.2 fL (9.4-12.4) L 02/23/18 04:06 Lymphocytes # 0.2 K/mcL (0.6-4.6) L 02/23/18 04:06 Sodium 125 mEq/L (136-145) L 02/23/18 04:06 Chloride 76 mEq/L (98-107) L 02/23/18 04:06 Carbon Dioxide 44 mEq/L (23-29) H* 02/23/18 04:06 Creatinine 0.52 mg/dL (0.70-1.30) L 02/23/18 04:06 Glucose 163 mg/dL (70-105) H 02/23/18 04:06 POC Glucose 150 mg/dL (70-99) H 02/21/18 23:04 Serum Osmolality 226 mOsm/kg (280-300) L 02/22/18 00:51 Calculated Osmolality 262 (280-300) L 02/23/18 04:06 Total Bilirubin 1.7 mg/dL (0.3-1.0) H 02/21/18 23:10 Direct Bilirubin 0.5 mg/dL (0.0-0.2) H 02/21/18 23:10 Alkaline Phosphatase 113 Units/L (34-104) H 02/21/18 23:10 Urine Osmolality 131 mOsm/kg (300-1090) L 02/21/18 22:53 Ethyl Alcohol 20 mg/dL (Less than 10) H 02/21/18 23:10 - Microbiology Findings Microbiology Findings: Microbiology, Last 48 Hours 02/22/18 Unknown Sputum Culture - Preliminary Sputum - Clinical Findings Intake & Output: Intake & Output 02/22/18 02/23/18 02/23/18 23:59 07:59 15:59 Intake Total 400 / 400 240 / 240 Output Total 1350 / 1350 1000 / 1000 Balance -950 / -950 -760 / -760 Weight 123.4 kg Consult Discharge Plan - Plan Referrals: Lopez Brito, [Primary Care Provider] - <Tera Oh - Last Filed: 02/23/18 12:42> Date of Encounter: 02/23/18 Objective PUL Vital signs: Last Vital Signs Temp 98.3 F 02/23/18 12:07 Pulse 86 02/23/18 12:07 Resp 18 02/23/18 12:07 BP 137/67 02/23/18 12:07 Pulse Ox 96 02/23/18 12:07 Results - Laboratory Findings CBC and BMP: 02/23/18 04:06 02/23/18 11:15 PT/INR, D-dimer PT 11.6 Seconds (9.4-12.1) 02/21/18 23:10 Abnormal lab findings: Abnormal lab results MCH 33.4 pg (28.0-33.3) H 02/23/18 04:06 MCHC 36.4 g/dL (31.6-35.5) H 02/23/18 04:06 Plt Count 135 K/mcL (140-400) L 02/23/18 04:06 MPV 8.2 fL (9.4-12.4) L 02/23/18 04:06 Lymphocytes # 0.2 K/mcL (0.6-4.6) L 02/23/18 04:06 Sodium 128 mEq/L (136-145) L 02/23/18 11:15 Chloride 76 mEq/L (98-107) L 02/23/18 04:06 Carbon Dioxide 44 mEq/L (23-29) H* 02/23/18 04:06 Creatinine 0.52 mg/dL (0.70-1.30) L 02/23/18 04:06 Glucose 163 mg/dL (70-105) H 02/23/18 04:06 POC Glucose 150 mg/dL (70-99) H 02/21/18 23:04 Serum Osmolality 226 mOsm/kg (280-300) L 02/22/18 00:51 Calculated Osmolality 262 (280-300) L 02/23/18 04:06 Total Bilirubin 1.7 mg/dL (0.3-1.0) H 02/21/18 23:10 Direct Bilirubin 0.5 mg/dL (0.0-0.2) H 02/21/18 23:10 Alkaline Phosphatase 113 Units/L (34-104) H 02/21/18 23:10 Urine Osmolality 131 mOsm/kg (300-1090) L 02/21/18 22:53 Ethyl Alcohol 20 mg/dL (Less than 10) H 02/21/18 23:10 - Microbiology Findings Microbiology Findings: Microbiology, Last 48 Hours 02/22/18 Unknown Sputum Culture - Preliminary Sputum - Clinical Findings Intake & Output: Intake & Output 02/22/18 02/23/18 02/23/18 23:59 07:59 15:59 Intake Total 400 / 400 240 / 240 260 / 260 Output Total 1350 / 1350 1000 / 1000 350 / 350 Balance -950 / -950 -760 / -760 -90 / -90 Weight 123.4 kg - Attending Attestation I examined this patient and my medical decision-making was reviewed with the Resident Physician. I agree with the documented findings, disposition and treatment plan as described except to the extent set forth below. Patient seen and examined. Labs, radiology, chart personally reviewed. Agree with resident's history and physical, assessment, plan with following comments: BARREL BURNER: Patient follows commands, Pulmonary: Acceptable oxygenation and ventilation. Patient has evidence of COPD exacerbation and is being treated and his hypoxia is most likely related to his underlying COPD and this time it would be acute hypoxic respiratory failure and its unknown at this time whether we will need oxygen when he is discharged home or not. He will need to be reevaluated then he will need 6 minute walk test and outpatient workup and follow-up as outpatient. Patient was advised to quit smoking and stop drinking significant amount of alcohol. Patient is hemodynamically stable and was transferred to the floor. Cardiovascular: stable GI: Nutrition per dietary and GI prophylaxis per routine Heme: DVT prophylaxis per routine ID: Continue antibiotics and plan to de-escalation Renal; urine out put and renal funtion reviewed. Hypernatremia is improving on fluid restriction. Endorcine: blood glucose is monitored Lines: all lines checked and no evidence of infections Skin: skin care to prevent pressure ulcers per nursing routine care
[2018-02-23] MEDS ORDERED: *HR* Metoprolol 5 MG/5 ML VIAL IVP PRN (09:17)
[2018-02-23] MEDS ORDERED: Ipratropium/Albuterol Neb 3 ML IH PRN (09:17)
[2018-02-23] MEDS ORDERED: *HR* LORazepam 2 MG/ML VIAL IVP PRN ×3 (09:17)
[2018-02-23] MEDS ORDERED: Beer can PO SCH (12:00)
--- NOTE | 2018-02-23 13:34 | Nephrology Progress Note ---
Date of Encounter: 02/23/18 Time of Encounter: 10:02 - Assessment and Plan (1) Hyponatremia Current Visit: Yes Status: Acute - Noted hyponatremia at 108 on presentation, improved to 125 with most recent labs - Etiology at this time is most likely consistent with acute hypovolemic hyponatremia - Likely secondary to low solute intake with chronic alcoholism - Sodium improved from presentation from 108 to 110/112/112/115/114/116-- 125 most recently - Started on NS with improvement as well as lasix 20 mg PO once, has been discontinued - urine Na of <20 indicates hypovolemia, Urine osm <200 indicates appropriate compensation - Recent Na of 133 on 02/03/18, acute in nature - TSH within normal limits - Goal sodium today came go back to baseline low 130s Plan - Patient is tolerating diet, recommend continuing PO intake and monitoring - Continue to hold NS as he is tolerating his diet and sodium is improving with solute intake. Encouraged salt intake with his diet - He was also reportedly recently started on a thiazide diuretic as outpatient but is unclear if he was taking it. May be contributing - Consider restarting NS or PO supplementation if remains low. Will continue to follow - Does not appear fluid overloaded on exam (2) Acute encephalopathy Current Visit: Yes Status: Resolved - Improved/resolved. Unclear baseline - Likely secondary to alcohol intoxication vs hyponatremia - Continue management as above - Supportive care for alcholism. Continue folic acid and thiamine (3) Alcoholism Current Visit: Yes Status: Chronic - Reportedly drinks 18 beers daily, possibly more - CIWA protocol in place. Has not required Ativan - Continue folic acid and thiamine. - Further management per primary team (4) Hypertension Current Visit: Yes Status: Chronic Improved today at 137/67 Continue to titrate antihypertensives as necessary Qualifiers: Hypertension type: essential hypertension Qualified Code(s): I10 - Essential (primary) hypertension Subjective Principal diagnosis: Hyponatremia Interval history: Patient was seen and examined at bedside this morning. He states that overall he is feeling well and feels like he wants to go home today. No acute events overnight. He has been tolerating his diet well Objective - Vital Signs Vital signs: Vital Signs Temp Pulse Resp BP Pulse Ox 02/23/18 12:07 98.3 F 86 18 137/67 96 02/23/18 08:00 80 16 153/79 93 02/23/18 07:20 16 141/78 93 02/23/18 07:00 98.1 F 75 02/23/18 06:00 72 14 138/71 96 02/23/18 05:00 68 12 151/74 96 02/23/18 04:21 97.9 F 02/23/18 04:00 70 12 121/57 96 02/23/18 03:41 17 111/57 93 02/23/18 03:00 72 14 111/57 85 02/23/18 02:00 70 14 140/83 92 02/23/18 01:00 68 13 132/63 90 02/23/18 00:00 66 12 127/68 92 02/22/18 23:51 98.6 F 02/22/18 23:00 73 16 147/69 93 02/22/18 22:43 13 147/69 95 02/22/18 22:00 72 16 148/75 94 02/22/18 21:00 78 16 130/68 92 02/22/18 20:00 78 18 135/65 94 02/22/18 19:51 16 144/76 95 02/22/18 19:50 98.9 F 02/22/18 19:00 74 18 149/72 94 02/22/18 17:40 98.1 F 75 14 146/69 91 02/22/18 16:26 98.4 F 82 14 160/79 95 02/22/18 15:23 20 93 02/22/18 15:14 98.5 F 77 12 176/96 93 02/22/18 14:34 73 14 161/86 89 Intake and Output 02/22/18 02/23/18 02/23/18 23:59 07:59 15:59 Intake Total 400 / 400 240 / 240 260 / 260 Output Total 1350 / 1350 1000 / 1000 350 / 350 Balance -950 / -950 -760 / -760 -90 / -90 Intake: Oral 400 / 400 240 / 240 260 / 260 Output: Urine 1350 / 1350 1000 / 1000 350 / 350 Other: Meal Lunch Percent of Meal Consumed 80% Weight 123.4 kg - General Appearance Exam: Gen.: Vitals noted. No acute distress. Alert and oriented. Disheveled, poor grooming, speech more clear today HEENT: PERRL/EOMI, oropharynx clear, Normocephalic, atraumatic, MMM Cardiac: RRR, no murmur, +S1/S2 Pulmonary: Coarse breath sounds diffusely with bilateral lower wheezes. equal chest expansion Abdomen: soft, nontender, BS noted, no guarding, no rebound. No appreciated hepatosplenomegaly MSK: no joint swelling noted Extremities: 1+ BLE edema, nontender calf, no cyanosis or clubbing Neuro: A&Ox1, moves all extremities, no focal deficits Psych: Appropriate mood and behavior - Lab 02/23/18 04:06 02/23/18 11:15 Most recent lab results Calcium 9.1 mg/dL (8.6-10.3) 02/23/18 04:06 Phosphorus 2.9 mg/dL (2.7-4.5) 02/21/18 23:10 Magnesium 1.8 mg/dL (1.6-2.6) 02/21/18 23:10 Urine Sodium < 10.0 mEq/L 02/21/18 22:53 Consult Discharge Plan - Plan Referrals: Lopez Brito DO [Primary Care Provider] -
[2018-02-24] MEDS: Ipratropium/Albuterol Neb 3 ML IH SCH ×3 (03:58→11:07)
[2018-02-24 04:52] VITALS: BP 134/72
[2018-02-24 05:04] LABS: Eosinophils % 0.1 %; Hematocrit 48.9 % (37.5-50.1); Hemoglobin 16.3 g/dL (12.9-16.9); Immature Granulocytes % 0.5 % (0-4); Lymphocytes # 0.2 K/mcL (0.6-4.6); Lymphocytes % 2.3 %; Mean Corpuscular HGB Conc 33.3 g/dL (31.6-35.5); Mean Corpuscular Hemoglobin 32.9 pg (28.0-33.3); Mean Platelet Volume 8.2 fL (9.4-12.4); Monocytes # 0.3 K/mcL (0.0-1.3); Platelet Count 132 K/mcL (140-400); Red Blood Count 4.95 M/mcL (4.19-5.50); Red Cell Distribution Width 13.1 % (11.5-14.5); Segmented Neutrophils % 93.1 %
[2018-02-24 05:26] LABS: BUN/Creatinine Ratio 23 (6-26); Blood Urea Nitrogen 12 mg/dL (6-20); Calcium 9.3 mg/dL (8.6-10.3); Carbon Dioxide 45 mEq/L (23-29); Chloride 85 mEq/L (98-107); Glucose 138 mg/dL (70-105); Osmolality,Calculated 280 (280-300); Potassium 3.2 mEq/L (3.5-5.1); Sodium 134 mEq/L (136-145); eGFR For Non-African Americans > 60 (> 60)
[2018-02-24 05:30] LABS: Mean Corpuscular Volume 98.8 fL (83.0-100.0)
[2018-02-24] MEDS: *HR* Heparin 5,000 UNIT/ML VIAL SQ SCH (05:54)
[2018-02-24] MEDS ORDERED: Azithromycin 250 MG in D5% in Water 250 ML IVPB SCH (06:00)
[2018-02-24 06:12] LABS: Platelet Estimate Normal (Normal)
[2018-02-24] MEDS: MethylPREDNISolone 40 MG/ML VIAL IVP SCH (07:48)
[2018-02-24] MEDS: Budesonide/Formoterol 160/4.5 1 PUFF INH IH SCH (08:43)
[2018-02-24 08:44] LABS: ABG Base Excess 23 mEq/L (-2 to 3); ABG HCO3 55 mEq/L (21-27); ABG Oxygen Saturation 73 % (95-98); ABG PCO2 86 mmHg (35-45); ABG PH 7.42 pH Units (7.32-7.45); ABG PO2 41 mmHg (85-104); ABG TCO2 > 50 mEq/L (20-26)
[2018-02-24] MEDS ORDERED: Azithromycin 250 MG TABLET PO SCH (09:00)
[2018-02-24] MEDS ORDERED: amLODIPine 5 MG TABLET PO SCH (09:00)
[2018-02-24] MEDS ORDERED: Thiamine (B-1) 100 MG TABLET PO SCH (09:00)
[2018-02-24] MEDS ORDERED: Vitamin B Complex/Vit C/Vit E 1 EACH TABLET PO SCH (09:00)
[2018-02-24] MEDS ORDERED: Folic Acid 1 MG TABLET PO SCH (09:00)
--- NOTE | 2018-02-24 10:14 | Discharge Summary ---
- NOTES TO OUTPATIENT PROVIDER Notes to Outpatient Provider: Follow-up with pulmonology within a week of hospital discharge. Orders not resulted at time of discharge: Pending orders 02/22/18 Sputum Culture [Culture,Sputum with Gram Stain] [] Routine 02/24/18 07:30 ABG Chemistry Profile Stat Date of Encounter: 02/24/18 Time of Encounter: 10:09 - Discharge Diagnosis (1) Hyponatremia Priority: Primary Status: Resolved (2) COPD exacerbation Priority: Secondary Status: Resolved (3) Tobacco abuse Priority: Secondary Status: Chronic (4) Hypertension Priority: Secondary Status: Chronic Qualifiers: Hypertension type: essential hypertension Qualified Code(s): I10 - Essential (primary) hypertension (5) Acute metabolic encephalopathy Priority: Secondary Status: Resolved (6) Chronic alcohol abuse Priority: Secondary Status: Chronic (7) Hypercapnic respiratory failure, chronic Priority: Secondary Status: Chronic (8) Hyponatremia Priority: Secondary Status: Resolved Hospital course: Mr. Elizabeth is a 57 year old male history of COPD, alcoholism and tobacco abuse who presented to [facility] due to complaint of hard time walking and "everything was really fuzzy in my head". Patient admitted to the hospital due to severe hyponatremia, COPD excarbation, hypoxemic/hypercapnic respiratory failure. Patient treated with nebs, IV steroids and antibiotics. Nephrology consulted due to his severe hyponatremia, patient given furosemide, and 0.9 NS, which was discontinued after patient started tolerating PO diet. Due to hypercapnia an ABG was done and patient found to have compensated hypercapnic respiratory failure. Patient asymptomatic. Recommended to be placed on BiPap, but patient refused. Explained to the patient the short and custodial risk of hypercapnic respiratory failure, including . Patient understood the risks, and still refused treatment. Discussed with decoration checker Pulm Dr. Ivy, he agreed on discharging the patient and recommended to follow up with them in the outpatient setting within 1 week of being discharged. Patient is hemodynamically stable, refused treatment for Hypercapnia. Will be discharged home on oral antibiotics and a medro-dosepack. Patient qualified for 2 litter of O2. - Time Spent with Patient Total time spent providing and/or coordinating discharge services: Greater than 30 minutes (45) - Discharge Medications Prescriptions: Azithromycin [Zithromax] 500 mg PO DAILY 5 Days #5 tablet Home Medications: Albuterol Neb [Proventil Neb] 2.5 mg IH Q4HR PRN 02/22/18 [History] Albuterol Sulfate [Albuterol Inhaler] 2 puff IH Q6H PRN 02/22/18 [History] Amlodipine Besylate 5 mg PO DAILY 02/22/18 [History] Budesonide/Formoterol 160/4.5 [Symbicort 160/4.5] 2 puff IH BID 02/22/18 [History] hydroCHLOROthiazide [Hydrochlorothiazide] 25 mg PO DAILY 02/22/18 [History] Azithromycin [Zithromax] 500 mg PO DAILY 5 Days #5 tablet 02/24/18 [Rx] Folic Acid 1 mg PO DAILY tablet 02/24/18 [Rx] Thiamine (B-1) [Vitamin B-1] 100 mg PO DAILY #0 tablet 02/24/18 [Rx] Vitamin B Complex/Vit C/Vit E [Stresstab] 1 each PO DAILY tablet 02/24/18 [Rx] Allergies/Adverse Reactions: Allergy/AdvReac Type Severity Reaction Status Date / Time No Known Allergies Allergy Verified 02/21/18 23:12 Date of admission: 02/21/18 22:53 Primary care physician: Lopez Brito DO Consults: 02/22/18 01:33 Consult to Nephrology [CONS] Routine Consulting Provider: Kidney Della/CALLI/TOO/CARLOS ALBERTO Reason for Consult: Hyponatremia Time Notified: 01:33 Call Completed: Yes 02/22/18 07:05 Consult to Pulmonology [CONS] Routine Consulting Provider: [facility] [place] Reason for Consult: hyponatremia Call Completed: Yes 02/23/18 07:36 Consult to Occupational Therapy [CONS] Routine Comment: Evaluate, develop and implement POC Reason for Consult: alcohol abuse, hyponatremia Does patient have active BEDREST order?: No Is patient medically & hemodynamically stable?: Yes Consult to Physical Therapy [CONS] Routine Comment: Evaluate, develop and implement POC Reason for Consult: Patient states he's worried he won't be able to walk if he stays in hospital any longer Does patient have active BEDREST order?: No Is patient medically & hemodynamically stable?: Yes 02/23/18 07:41 Consult to Captain Waiter [CONS] Routine Reason for SW Consult: hyponatremia due to alcohol abuse - Constitutional Vitals: Temp Pulse Resp BP Pulse Ox 99.6 F 72 18 134/72 98 02/24/18 04:40 02/24/18 04:40 02/24/18 04:40 02/24/18 04:40 02/24/18 04:40 Exam: Vitals: Reviewed. General: Alert and oriented x4. In no acute distress. Skin: Normal color, no rash, no lesions. HEENT: EOM, pupils equal, round and reactive. Cardiovascular: RRR, Normal S1 & S2, no rubs, murmurs or gallops. No JVD. Lungs: mild scattered b/l wheezing, rales at the bases b/l, no crackles. Abdomen: Obese, Soft, non-tender, no rigidity. Extremities: No deformity, 2+ edema, no joint swelling or clubbing. Neurological: Normal cognition and motor skills. Rest of the physical exam is non contributory - Patient Status Disposition: Home, Self-Care Condition: Good Functional capacity at discharge: independent ambulation Overall status at discharge: patient is progressing back to baseline - Discharge Instructions Instructions: Azithromycin (By mouth) Follow Up With: Tera Oh MD [Partnered Physician] - (Web Request 02/24/2018) Lopez Brito DO [Primary Care Provider] - 03/01/18 1:00 pm (Please follow up as schedule ) - Diet and Activity Activity: resume usual activities as tolerated
--- NOTE | 2018-02-24 10:24 | Nephrology Progress Note ---
Date of Encounter: 02/24/18 Time of Encounter: 10:20 - Assessment and Plan (1) Hyponatremia Current Visit: Yes Status: Resolved - Resolved. At this time patient is back to baseline sodium levels and is asymptomatic. Etiology was likely secondary to decreased solute intake secondary to known alcohol abuse. He was educated on his alcohol consumption. Nephrology will sign off at this time, thank you for allowing us to participate in this consult. Please reconsult as needed - Noted hyponatremia at 108 on presentation, improved to 134 with most recent labs. At baseline - Etiology at this time is most likely consistent with acute hypovolemic hypo natremia - Likely secondary to low solute intake with chronic alcoholism - Sodium improved from presentation from 108 to 110/112/112/115/114/116-- 134 most recently - Started on NS with improvement as well as lasix 20 mg PO once, has been discontinued - urine Na of <20 indicates hypovolemia, Urine osm <200 indicates appropriate compensation - Recent Na of 133 on 02/03/18, acute in nature - TSH within normal limits - Goal sodium today came go back to baseline low 130s Plan - Patient is tolerating diet, recommend continuing PO intake and monitoring - Continue to hold NS as he is tolerating his diet and sodium is improving with solute intake. Encouraged salt intake with his diet - He was also reportedly recently started on a thiazide diuretic as outpatient but is unclear if he was taking it. May be contributing - Does not appear fluid overloaded on exam (2) Acute encephalopathy Current Visit: Yes Status: Resolved Resolved. Likely secondary to hyponatremia versus acute alcohol intoxication. Advised cutting back or cessation of his alcohol in addition to daily vitamins. (3) Alcoholism Current Visit: Yes Status: Chronic - Reportedly drinks 18 beers daily, possibly more - CIWA protocol in place. Has not required Ativan - Continue folic acid and thiamine. - Further management per primary team (4) Hypertension Current Visit: Yes Status: Chronic Well-controlled this time Qualifiers: Hypertension type: essential hypertension Qualified Code(s): I10 - Essential (primary) hypertension Subjective Principal diagnosis: Hyponatremia Interval history: Patient was seen and examined at bedside this morning. He states that overall he is feeling well and feels like he wants to go home today. No acute events overnight. He has been tolerating his diet well. He is alert and oriented 3. He denies any symptoms of shortness of breath, fevers, chills, nausea, vomiting, confusion. He does state he uses home nebulizer treatments but does not have a CPAP or BiPAP. He does not normally wear oxygen at home. Objective - Vital Signs Vital signs: Vital Signs Temp Pulse Resp BP Pulse Ox 02/24/18 04:40 99.6 F 72 18 134/72 98 02/23/18 22:59 98.6 F 86 22 161/79 97 02/23/18 20:31 97.8 F 61 17 158/78 96 02/23/18 20:10 20 96 02/23/18 19:24 79 02/23/18 15:38 18 96 02/23/18 15:31 98.0 F 86 15 147/84 97 02/23/18 12:07 98.3 F 86 18 137/67 96 Intake and Output 02/23/18 02/24/18 02/24/18 23:59 07:59 15:59 Intake Total 30 / 30 0 / 0 Output Total 0 / 0 Balance 30 / 30 0 / 0 Intake: Oral 30 / 30 0 / 0 Output: Urine 0 / 0 Other: Blood Glucose* 276 - General Appearance Exam: Gen.: Vitals noted. No acute distress. AAOx3 HEENT: PERRL/EOMI, oropharynx clear, Normocephalic, atraumatic, MMM Cardiac: RRR, no murmur, +S1/S2 Pulmonary: Coarse breath sounds diffusely as well as expiratory wheezes. equal chest expansion Abdomen: soft, nontender, BS noted, no guarding, no rebound. Extremities: no BLE edema, nontender calf, no cyanosis or clubbing Neuro: A&Ox3, moves all extremities, no focal deficits Psych: Appropriate mood and behavior - Lab 02/24/18 04:26 02/24/18 04:26 Most recent lab results ABG pH 7.42 pH Units (7.32-7.45) 02/24/18 08:36 ABG pCO2 86 mmHg (35-45) H* 02/24/18 08:36 ABG pO2 41 mmHg (85-104) L* 02/24/18 08:36 ABG HCO3 55 mEq/L (21-27) H 02/24/18 08:36 ABG O2 Saturation 73 % (95-98) L 02/24/18 08:36 Calcium 9.3 mg/dL (8.6-10.3) 02/24/18 04:26 Phosphorus 2.9 mg/dL (2.7-4.5) 02/21/18 23:10 Magnesium 1.8 mg/dL (1.6-2.6) 02/21/18 23:10 Urine Sodium < 10.0 mEq/L 02/21/18 22:53 Consult Discharge Plan - Plan Referrals: Lopez Brito DO [Primary Care Provider] - Prescriptions: Azithromycin [Zithromax] 500 mg PO DAILY 5 Days #5 tablet
== END 2018-02-24 12:39 | disposition home or self-care (01) | DRG 190 ==
LOC: ICNU → SUATTDRO 22:53 → 2ANU 02-23 11:46
PROVIDERS: ADMIT Internal Medicine; ATTEND Internal Medicine

== ENCOUNTER 2021-10-01 17:02 | Inpatient (IN) ==
[2021-10-01] MEDS ORDERED: Ipratropium/Albuterol Neb 3 ML IH ONE ×2 (18:35→21:02)
[2021-10-01] MEDS ORDERED: methylPREDNISolone 125 MG/2 ML VIAL IVP ONE (18:35)
[2021-10-01 18:47] LABS: Basophils % 0.8 %; Eosinophils # 0.1 K/mcL (0.0-0.6); Eosinophils % 0.9 %; Hematocrit 45.8 % (37.5-50.1); Immature Granulocytes % 0.8 % (0-4); Lymphocytes # 0.6 K/mcL (0.6-4.6); Lymphocytes % 10.9 %; Mean Corpuscular HGB Conc 34.9 g/dL (31.6-35.5); Mean Corpuscular Hemoglobin 32.5 pg (28.0-33.3); Mean Corpuscular Volume 92.9 fL (83.0-100.0); Mean Platelet Volume 8.3 fL (9.4-12.4); Monocytes # 0.6 K/mcL (0.0-1.3); Monocytes % 10.9 %; Platelet Count 167 K/mcL (140-400); Red Blood Count 4.93 M/mcL (4.19-5.50); Red Cell Distribution Width 13.1 % (11.5-14.5); Segmented Neutrophils % 75.7 %; White Blood Count 5.3 K/mcL (4.3-11.1)
[2021-10-01 19:34] LABS: BUN/Creatinine Ratio 30 (6-26); Blood Urea Nitrogen 29 mg/dL (8-23); Calcium 8.7 mg/dL (8.6-10.3); Carbon Dioxide 28 mEq/L (23-29); Chloride 71 mEq/L (98-107); Glucose 88 mg/dL (70-105); Osmolality,Calculated 235 (280-300); Potassium 5.1 mEq/L (3.5-5.1); Sodium 110 mEq/L (136-145); Troponin I 0.04 ng/mL (< 0.04); eGFR For African Americans > 60 (> 60); eGFR For Non-African Americans > 60 (> 60)
[2021-10-01 20:09] LABS: Adenovirus Not Detected (Not Detect); Bordetella Pertussis Not Detected (Not Detect); Chlamydophila pneumoniae Not Detected (Not Detect); Coronavirus 229E Not Detected (Not Detect); Coronavirus HKU1 Not Detected (Not Detect); Coronavirus NL63 Not Detected (Not Detect); Coronavirus OC43 Not Detected (Not Detect); Human Metapneumovirus Not Detected (Not Detect); Human Rhinovirus/Enterovirus Not Detected (Not Detect); Influenza A Subtype 2009 H1 Not Detected (Not Detect); Influenza B Not Detected (Not Detect); Mycoplasma pneumoniae Not Detected (Not Detect); Parainfluenza Virus 1 Not Detected (Not Detect); Parainfluenza Virus 2 Not Detected (Not Detect); Parainfluenza Virus 3 Not Detected (Not Detect); Parainfluenza Virus 4 Not Detected (Not Detect); Respiratory Syncytial Virus Not Detected (Not Detect); SARS-CoV-2 Not Detected (Not Detect)
[2021-10-01 20:41] LABS: Sodium, Urine 14.3 mEq/L
[2021-10-01 21:18] LABS: Amphetamine Screen,Urine Negative ng/mL (Cutoff=1000); Barbiturate Screen,Urine Negative ng/mL (Cutoff=200); Benzodiazepines Screen,Urine Negative ng/mL (Cutoff=200); Cannabinoid Screen,Urine Negative ng/mL (Cutoff = 50); Cocaine Screen,Urine Negative ng/mL (Cutoff= 300); Opiate Screen,Urine Negative ng/mL (Cutoff=300); Phencyclidine Screen,Urine Negative ng/mL (Cutoff=25)
[2021-10-01 21:29] LABS: VBG HCO3 34 mEq/L (21-27); VBG PCO2 76 mmHg (41-51); VBG PH 7.26 pH Units (7.32-7.42); VBG PO2 59 mmHg (25-50)
[2021-10-01] MEDS ORDERED: Ondansetron 4 MG/2 ML VIAL IVP PRN (21:54)
[2021-10-01] MEDS ORDERED: Melatonin 3 MG TABLET PO PRN (21:54)
[2021-10-01] MEDS ORDERED: Naloxone 0.4 MG/ML INJ IVP PRN (21:54)
[2021-10-01] MEDS ORDERED: Dextrose Gel 15 GM/37.5 ML TUBE PO PRN ×2 (21:56)
[2021-10-01] MEDS ORDERED: D5% in Water 1,000 ML IVC PRN (21:56)
[2021-10-01] MEDS ORDERED: *HR* Dextrose 50 % in Water (Syg) 50 ML SYRINGE IVP PRN (21:56)
[2021-10-01] MEDS ORDERED: *HR* LORazepam 2 MG/ML VIAL IVP PRN ×2 (22:42)
[2021-10-01] MEDS: Budesonide/Formoterol 160/4.5 1 PUFF INH IH SCH (23:01)
[2021-10-01] MEDS: Ipratropium/Albuterol Neb 3 ML IH SCH (23:01)
[2021-10-01] MEDS ORDERED: 0.9 % Sodium Chloride 1,000 ML IVC SCH (23:45)
[2021-10-02] MEDS ORDERED: 0.9 % Sodium Chloride 1,000 ML IVC SCH ×2 (00:15→03:20)
[2021-10-02 00:32] LABS: Creatinine,Urine 22 mg/dL
[2021-10-02] MEDS: MethylPREDNISolone 40 MG/ML VIAL IVP SCH ×3 (02:13→17:42)
[2021-10-02 02:38] LABS: Basophils % 0.3 %; Hematocrit 48.7 % (37.5-50.1); Hemoglobin 16.6 g/dL (12.9-16.9); Immature Granulocytes % 0.6 % (0-4); Lymphocytes # 0.2 K/mcL (0.6-4.6); Lymphocytes % 4.9 %; Mean Corpuscular HGB Conc 34.1 g/dL (31.6-35.5); Mean Corpuscular Hemoglobin 32.2 pg (28.0-33.3); Mean Corpuscular Volume 94.6 fL (83.0-100.0); Mean Platelet Volume 8.5 fL (9.4-12.4); Monocytes # 0.1 K/mcL (0.0-1.3); Monocytes % 1.8 %; Platelet Count 127 K/mcL (140-400); Red Blood Count 5.15 M/mcL (4.19-5.50); Red Cell Distribution Width 13.2 % (11.5-14.5); Segmented Neutrophils % 92.4 %; White Blood Count 3.3 K/mcL (4.3-11.1)
[2021-10-02 02:39] LABS: Magnesium 1.8 mg/dL (1.6-2.6); Phosphorous 3.8 mg/dL (2.7-4.5)
[2021-10-02 02:43] LABS: Neutrophils # 3.1 K/mcL (1.6-8.9)
[2021-10-02 02:45] LABS: INR 1.2
[2021-10-02 02:47] LABS: Activated Partial Thrombo Time 36.2 Seconds (26.0-36.0)
[2021-10-02 03:12] LABS: Platelet Estimate Slight Decrease (Normal)
[2021-10-02 03:20] LABS: Alanine Aminotransferase 9 Units/L (7-52); Albumin 3.8 g/dL (3.5-5.7); Albumin/Globulin Ratio 1.1 (1.1-2.2); Alkaline Phosphatase 78 Units/L (34-104); Aspartate Amino Transferase 24 Units/L (13-39); BUN/Creatinine Ratio 30 (6-26); Bilirubin,Total 1.3 mg/dL (0.3-1.0); Blood Urea Nitrogen 25 mg/dL (8-23); Calcium 8.3 mg/dL (8.6-10.3); Carbon Dioxide 20 mEq/L (23-29); Chloride 72 mEq/L (98-107); Cholesterol 114 mg/dL (< 200); Ethanol < 10 mg/dL (Less than 10); Globulin 3.4 g/dL (2.4-3.5); Glucose 108 mg/dL (70-105); HDL Cholesterol 56 mg/dL (40-59); LDL Cholesterol,Calculated 48 mg/dL (< 100); Osmolality,Calculated 225 (280-300); Potassium 4.9 mEq/L (3.5-5.1); Sodium 105 mEq/L (136-145); Total Protein 7.2 g/dL (6.4-8.9); Triglycerides 51 mg/dL (< 150); eGFR For African Americans > 60 (> 60); eGFR For Non-African Americans > 60 (> 60)
[2021-10-02] MEDS: Ipratropium/Albuterol Neb 3 ML IH SCH ×6 (03:28→23:02)
[2021-10-02 03:41] LABS: Troponin I 0.03 ng/mL (< 0.04)
[2021-10-02 03:43] LABS: Thyroid Stimulating Hormone 1.784 mcIU/mL (0.340-5.600)
[2021-10-02 04:08] LABS: Estimated Average Glucose 117 mg/dl; Hemoglobin A1C 5.7 %
[2021-10-02] MEDS: *HR* Heparin 5,000 UNIT/ML VIAL SQ SCH ×3 (06:12→20:28)
[2021-10-02] MEDS: Budesonide/Formoterol 160/4.5 1 PUFF INH IH SCH ×2 (07:43→20:10)
[2021-10-02] MEDS: Chlorhexidine Rinse 15 ML MOUTHWASH MM SCH ×2 (08:37→20:28)
[2021-10-02] MEDS: NIFEdipine XL (24 HR) 60 MG TAB.ER.24 PO SCH (08:37)
[2021-10-02] MEDS: Aspirin 81 MG TAB.CHEW PO SCH (08:37)
[2021-10-02] MEDS: Vitamin B Complex/Vit C/Vit E 1 EACH TABLET PO SCH (08:38)
[2021-10-02] MEDS: Nicotine 21 MG PATCH.TD24 TD SCH (08:38)
[2021-10-02] MEDS: Thiamine (B-1) 100 MG TABLET PO SCH (08:38)
[2021-10-02] MEDS: Folic Acid 1 MG TABLET PO SCH (08:38)
[2021-10-02 09:24] LABS: BUN/Creatinine Ratio 31 (6-26); Blood Urea Nitrogen 21 mg/dL (8-23); Calcium 8.3 mg/dL (8.6-10.3); Carbon Dioxide 35 mEq/L (23-29); Chloride 76 mEq/L (98-107); Glucose 154 mg/dL (70-105); Osmolality,Calculated 250 (280-300); Sodium 117 mEq/L (136-145); Troponin I 0.03 ng/mL (< 0.04); eGFR For African Americans > 60 (> 60); eGFR For Non-African Americans > 60 (> 60)
[2021-10-02] MEDS ORDERED: Furosemide 40 MG/4 ML VIAL IVP ONE (09:59)
[2021-10-02 10:41] LABS: Uric Acid 9.2 mg/dL (2.3-7.6)
[2021-10-02] MEDS ORDERED: Perflutren Lipid Microsphere 1.3 ML in 0.9 % Sodium Chloride 8.7 ML IVP PRN (11:26)
[2021-10-02 12:36] LABS: BUN/Creatinine Ratio 32 (6-26); Blood Urea Nitrogen 20 mg/dL (8-23); Calcium 8.4 mg/dL (8.6-10.3); Carbon Dioxide 36 mEq/L (23-29); Chloride 76 mEq/L (98-107); Glucose 158 mg/dL (70-105); Osmolality,Calculated 250 (280-300); Potassium 4.7 mEq/L (3.5-5.1); Sodium 117 mEq/L (136-145); eGFR For African Americans > 60 (> 60); eGFR For Non-African Americans > 60 (> 60)
[2021-10-02] MEDS: Acetaminophen 325 MG TABLET PO PRN (14:27)
[2021-10-02 16:13] LABS: ABG Base Excess 7 mEq/L (-2 to 3); ABG HCO3 39 mEq/L (21-27); ABG Oxygen Saturation 90 % (95-98); ABG PCO2 88 mmHg (35-45); ABG PH 7.25 pH Units (7.32-7.45); ABG PO2 72 mmHg (85-104); ABG TCO2 41 mEq/L (20-26)
[2021-10-02 16:14] LABS: BUN/Creatinine Ratio 28 (6-26); Blood Urea Nitrogen 19 mg/dL (8-23); Calcium 8.3 mg/dL (8.6-10.3); Carbon Dioxide 38 mEq/L (23-29); Chloride 77 mEq/L (98-107); Glucose 151 mg/dL (70-105); Osmolality,Calculated 253 (280-300); Potassium 4.6 mEq/L (3.5-5.1); Sodium 119 mEq/L (136-145); eGFR For African Americans > 60 (> 60); eGFR For Non-African Americans > 60 (> 60)
[2021-10-02 17:09] LABS: BUN/Creatinine Ratio 28 (6-26); Blood Urea Nitrogen 18 mg/dL (8-23); Calcium 8.5 mg/dL (8.6-10.3); Carbon Dioxide 37 mEq/L (23-29); Chloride 76 mEq/L (98-107); Glucose 147 mg/dL (70-105); Osmolality,Calculated 249 (280-300); Potassium 4.7 mEq/L (3.5-5.1); Sodium 117 mEq/L (136-145); eGFR For African Americans > 60 (> 60); eGFR For Non-African Americans > 60 (> 60)
[2021-10-02 19:17] LABS: BUN/Creatinine Ratio 26 (6-26); Blood Urea Nitrogen 19 mg/dL (8-23); Calcium 8.4 mg/dL (8.6-10.3); Carbon Dioxide 38 mEq/L (23-29); Chloride 77 mEq/L (98-107); Glucose 142 mg/dL (70-105); Osmolality,Calculated 251 (280-300); Potassium 4.8 mEq/L (3.5-5.1); Sodium 118 mEq/L (136-145); eGFR For African Americans > 60 (> 60); eGFR For Non-African Americans > 60 (> 60)
[2021-10-02] MEDS ORDERED: Budesonide/Formoterol 160/4.5 1 PUFF INH IH SCH (21:00)
[2021-10-02] MEDS ORDERED: Furosemide 40 MG/4 ML VIAL IVP SCH (21:00)
[2021-10-02 21:29] LABS: BUN/Creatinine Ratio 28 (6-26); Blood Urea Nitrogen 18 mg/dL (8-23); Calcium 8.4 mg/dL (8.6-10.3); Carbon Dioxide 36 mEq/L (23-29); Chloride 78 mEq/L (98-107); Glucose 134 mg/dL (70-105); Osmolality,Calculated 252 (280-300); Potassium 4.8 mEq/L (3.5-5.1); Sodium 119 mEq/L (136-145); eGFR For African Americans > 60 (> 60); eGFR For Non-African Americans > 60 (> 60)
[2021-10-02 23:38] LABS: BUN/Creatinine Ratio 32 (6-26); Blood Urea Nitrogen 18 mg/dL (8-23); Calcium 8.4 mg/dL (8.6-10.3); Carbon Dioxide 39 mEq/L (23-29); Chloride 79 mEq/L (98-107); Glucose 134 mg/dL (70-105); Osmolality,Calculated 254 (280-300); Sodium 120 mEq/L (136-145); eGFR For African Americans > 60 (> 60); eGFR For Non-African Americans > 60 (> 60)
[2021-10-03] MEDS: MethylPREDNISolone 40 MG/ML VIAL IVP SCH ×2 (00:06→07:38)
[2021-10-03] MEDS: Acetaminophen 325 MG TABLET PO PRN (01:43)
[2021-10-03 02:23] LABS: BUN/Creatinine Ratio 30 (6-26); Blood Urea Nitrogen 17 mg/dL (8-23); Calcium 8.7 mg/dL (8.6-10.3); Carbon Dioxide 38 mEq/L (23-29); Chloride 79 mEq/L (98-107); Glucose 132 mg/dL (70-105); Osmolality,Calculated 251 (280-300); Potassium 5.7 mEq/L (3.5-5.1); Sodium 119 mEq/L (136-145); eGFR For African Americans > 60 (> 60); eGFR For Non-African Americans > 60 (> 60)
[2021-10-03] MEDS: Ipratropium/Albuterol Neb 3 ML IH SCH ×6 (04:01→23:01)
[2021-10-03 04:09] LABS: ABG Base Excess 7 mEq/L (-2 to 3); ABG HCO3 37 mEq/L (21-27); ABG Oxygen Saturation 94 % (95-98); ABG PCO2 69 mmHg (35-45); ABG PH 7.33 pH Units (7.32-7.45); ABG PO2 79 mmHg (85-104); ABG TCO2 39 mEq/L (20-26); Blood Gas Modality ST
[2021-10-03] MEDS: *HR* Heparin 5,000 UNIT/ML VIAL SQ SCH ×3 (04:52→23:30)
[2021-10-03 05:40] LABS: BUN/Creatinine Ratio 28 (6-26); Blood Urea Nitrogen 16 mg/dL (8-23); Calcium 8.8 mg/dL (8.6-10.3); Carbon Dioxide 39 mEq/L (23-29); Chloride 76 mEq/L (98-107); Glucose 140 mg/dL (70-105); Osmolality,Calculated 249 (280-300); Potassium 5.3 mEq/L (3.5-5.1); Sodium 118 mEq/L (136-145); eGFR For African Americans > 60 (> 60); eGFR For Non-African Americans > 60 (> 60)
[2021-10-03 07:26] LABS: BUN/Creatinine Ratio 30 (6-26); Blood Urea Nitrogen 17 mg/dL (8-23); Calcium 8.5 mg/dL (8.6-10.3); Carbon Dioxide 38 mEq/L (23-29); Chloride 78 mEq/L (98-107); Glucose 174 mg/dL (70-105); Osmolality,Calculated 254 (280-300); Potassium 4.6 mEq/L (3.5-5.1); Sodium 119 mEq/L (136-145); eGFR For African Americans > 60 (> 60); eGFR For Non-African Americans > 60 (> 60)
[2021-10-03] MEDS: Folic Acid 1 MG TABLET PO SCH (07:38)
[2021-10-03] MEDS: Aspirin 81 MG TAB.CHEW PO SCH (07:38)
[2021-10-03] MEDS: NIFEdipine XL (24 HR) 60 MG TAB.ER.24 PO SCH (07:38)
[2021-10-03] MEDS: lisinopriL 20 MG TABLET PO SCH (07:38)
[2021-10-03] MEDS: Vitamin B Complex/Vit C/Vit E 1 EACH TABLET PO SCH (07:38)
[2021-10-03] MEDS: Thiamine (B-1) 100 MG TABLET PO SCH (07:38)
[2021-10-03] MEDS: Chlorhexidine Rinse 15 ML MOUTHWASH MM SCH ×2 (07:39→19:31)
[2021-10-03] MEDS: Nicotine 21 MG PATCH.TD24 TD SCH (07:39)
[2021-10-03] MEDS: Budesonide/Formoterol 160/4.5 1 PUFF INH IH SCH ×2 (07:46→20:15)
[2021-10-03 13:48] LABS: BUN/Creatinine Ratio 30 (6-26); Blood Urea Nitrogen 17 mg/dL (8-23); Calcium 8.8 mg/dL (8.6-10.3); Carbon Dioxide 39 mEq/L (23-29); Chloride 78 mEq/L (98-107); Glucose 181 mg/dL (70-105); Osmolality,Calculated 256 (280-300); Potassium 4.7 mEq/L (3.5-5.1); Sodium 120 mEq/L (136-145); eGFR For African Americans > 60 (> 60); eGFR For Non-African Americans > 60 (> 60)
[2021-10-03] MEDS: Gabapentin 100 MG CAPSULE PO SCH ×2 (14:42→19:30)
[2021-10-03] MEDS ORDERED: Perflutren Lipid Microsphere 1.3 ML in 0.9 % Sodium Chloride 8.7 ML IVP PRN (17:44)
[2021-10-04] MEDS: Ipratropium/Albuterol Neb 3 ML IH SCH ×6 (04:21→23:18)
[2021-10-04 04:56] LABS: BUN/Creatinine Ratio 29 (6-26); Blood Urea Nitrogen 15 mg/dL (8-23); Calcium 8.5 mg/dL (8.6-10.3); Carbon Dioxide 43 mEq/L (23-29); Chloride 82 mEq/L (98-107); Glucose 107 mg/dL (70-105); Osmolality,Calculated 261 (280-300); Potassium 4.4 mEq/L (3.5-5.1); Sodium 125 mEq/L (136-145); eGFR For African Americans > 60 (> 60); eGFR For Non-African Americans > 60 (> 60)
[2021-10-04 05:59] LABS: Hemoglobin 14.7 g/dL (12.9-16.9); Mean Corpuscular Hemoglobin 31.6 pg (28.0-33.3); Mean Corpuscular Volume 98.9 fL (83.0-100.0); Mean Platelet Volume 8.1 fL (9.4-12.4); Red Blood Count 4.65 M/mcL (4.19-5.50); Red Cell Distribution Width 13.6 % (11.5-14.5); White Blood Count 6.8 K/mcL (4.3-11.1)
[2021-10-04] MEDS: *HR* Heparin 5,000 UNIT/ML VIAL SQ SCH ×3 (06:11→19:58)
[2021-10-04] MEDS: Budesonide/Formoterol 160/4.5 1 PUFF INH IH SCH ×2 (07:19→20:22)
[2021-10-04] MEDS ORDERED: acetaZOLAMIDE 250 MG in Water for inj. (sterile) 2.5 ML IVP ONE (08:33)
[2021-10-04] MEDS ORDERED: lisinopriL 10 MG TABLET PO SCH (09:00)
[2021-10-04] MEDS: Folic Acid 1 MG TABLET PO SCH (10:14)
[2021-10-04] MEDS: lisinopriL 20 MG TABLET PO SCH (10:14)
[2021-10-04] MEDS: Thiamine (B-1) 100 MG TABLET PO SCH (10:14)
[2021-10-04] MEDS: NIFEdipine XL (24 HR) 60 MG TAB.ER.24 PO SCH (10:14)
[2021-10-04] MEDS: Gabapentin 100 MG CAPSULE PO SCH ×3 (10:15→19:59)
[2021-10-04] MEDS: Vitamin B Complex/Vit C/Vit E 1 EACH TABLET PO SCH (10:15)
[2021-10-04] MEDS: Nicotine 21 MG PATCH.TD24 TD SCH (10:16)
[2021-10-04] MEDS: Chlorhexidine Rinse 15 ML MOUTHWASH MM SCH ×2 (10:16→19:58)
[2021-10-04] MEDS: *HR* HYDROcodone/Acet 5/325 mg TABLET PO PRN (10:22)
[2021-10-04] MEDS: Aspirin 81 MG TAB.CHEW PO SCH (13:32)
[2021-10-04] MEDS: *HR* LORazepam 2 MG/ML VIAL IVP PRN (20:18)
[2021-10-05 03:12] LABS: BUN/Creatinine Ratio 24 (6-26); Blood Urea Nitrogen 15 mg/dL (8-23); Carbon Dioxide 39 mEq/L (23-29); Chloride 87 mEq/L (98-107); Glucose 98 mg/dL (70-105); Osmolality,Calculated 269 (280-300); Potassium 4.5 mEq/L (3.5-5.1); Sodium 129 mEq/L (136-145); eGFR For African Americans > 60 (> 60); eGFR For Non-African Americans > 60 (> 60)
[2021-10-05] MEDS: Ipratropium/Albuterol Neb 3 ML IH SCH ×6 (03:36→23:20)
[2021-10-05] MEDS ORDERED: *HR* LORazepam 2 MG/ML VIAL IVP ONE (05:00)
[2021-10-05 05:04] LABS: ABG Base Excess 10 mEq/L (-2 to 3); ABG HCO3 44 mEq/L (21-27); ABG Oxygen Saturation 93 % (95-98); ABG PCO2 103 mmHg (35-45); ABG PH 7.24 pH Units (7.32-7.45); ABG PO2 87 mmHg (85-104); ABG TCO2 47 mEq/L (20-26)
[2021-10-05] MEDS: *HR* Heparin 5,000 UNIT/ML VIAL SQ SCH ×3 (05:16→20:11)
[2021-10-05] MEDS: Budesonide/Formoterol 160/4.5 1 PUFF INH IH SCH ×2 (07:37→19:46)
[2021-10-05] MEDS: NIFEdipine XL (24 HR) 60 MG TAB.ER.24 PO SCH (09:51)
[2021-10-05] MEDS: Gabapentin 100 MG CAPSULE PO SCH ×3 (09:52→20:10)
[2021-10-05] MEDS: Aspirin 81 MG TAB.CHEW PO SCH (09:52)
[2021-10-05] MEDS: lisinopriL 20 MG TABLET PO SCH (09:52)
[2021-10-05] MEDS: Thiamine (B-1) 100 MG TABLET PO SCH (09:52)
[2021-10-05] MEDS: Folic Acid 1 MG TABLET PO SCH (09:52)
[2021-10-05] MEDS: Nicotine 21 MG PATCH.TD24 TD SCH (09:55)
[2021-10-05] MEDS: Vitamin B Complex/Vit C/Vit E 1 EACH TABLET PO SCH (09:55)
[2021-10-05] MEDS: Chlorhexidine Rinse 15 ML MOUTHWASH MM SCH ×2 (09:58→20:10)
[2021-10-05] MEDS: Furosemide 40 MG/4 ML VIAL IVP SCH ×2 (13:31→20:11)
[2021-10-05 17:34] LABS: ABG Base Excess 12 mEq/L (-2 to 3); ABG HCO3 42 mEq/L (21-27); ABG Oxygen Saturation 92 % (95-98); ABG PCO2 81 mmHg (35-45); ABG PH 7.33 pH Units (7.32-7.45); ABG PO2 71 mmHg (85-104); ABG TCO2 45 mEq/L (20-26); Blood Gas Modality AVAPS; Blood Gas VT 500 cc
[2021-10-05] MEDS: *HR* LORazepam 2 MG/ML VIAL IVP PRN (20:45)
[2021-10-06] MEDS: Ipratropium/Albuterol Neb 3 ML IH SCH ×6 (03:18→22:49)
[2021-10-06] MEDS: *HR* Heparin 5,000 UNIT/ML VIAL SQ SCH ×3 (05:46→22:30)
[2021-10-06] MEDS: Budesonide/Formoterol 160/4.5 1 PUFF INH IH SCH ×2 (07:30→19:57)
[2021-10-06 08:16] LABS: Basophils % 0.4 %; Immature Granulocytes % 0.2 % (0-4)
[2021-10-06 08:18] LABS: Eosinophils # 0.3 K/mcL (0.0-0.6); Eosinophils % 5.3 %; Hematocrit 47.3 % (37.5-50.1); Hemoglobin 14.9 g/dL (12.9-16.9); Immature Platelets 1.4 % (1.1-6.1); Lymphocytes # 0.7 K/mcL (0.6-4.6); Lymphocytes % 14.1 %; Mean Corpuscular HGB Conc 31.5 g/dL (31.6-35.5); Mean Corpuscular Hemoglobin 31.5 pg (28.0-33.3); Monocytes # 0.5 K/mcL (0.0-1.3); Monocytes % 9.9 %; Platelet Count 140 K/mcL (140-400); Red Blood Count 4.73 M/mcL (4.19-5.50); Red Cell Distribution Width 13.9 % (11.5-14.5); Segmented Neutrophils % 70.1 %; White Blood Count 5.1 K/mcL (4.3-11.1)
[2021-10-06 08:33] LABS: Alanine Aminotransferase 12 Units/L (7-52); Albumin 3.3 g/dL (3.5-5.7); Albumin/Globulin Ratio 1.3 (1.1-2.2); Alkaline Phosphatase 54 Units/L (34-104); Aspartate Amino Transferase 19 Units/L (13-39); BUN/Creatinine Ratio 23 (6-26); Bilirubin,Total 1.2 mg/dL (0.3-1.0); Blood Urea Nitrogen 16 mg/dL (8-23); Calcium 9.1 mg/dL (8.6-10.3); Chloride 87 mEq/L (98-107); Globulin 2.5 g/dL (2.4-3.5); Glucose 106 mg/dL (70-105); Osmolality,Calculated 282 (280-300); Sodium 135 mEq/L (136-145); Total Protein 5.8 g/dL (6.4-8.9); eGFR For African Americans > 60 (> 60); eGFR For Non-African Americans > 60 (> 60)
[2021-10-06 08:35] LABS: Neutrophils # 3.6 K/mcL (1.6-8.9)
[2021-10-06 08:36] LABS: Platelet Estimate Normal (Normal)
[2021-10-06] MEDS: Nicotine 21 MG PATCH.TD24 TD SCH (09:12)
[2021-10-06] MEDS: Furosemide 40 MG/4 ML VIAL IVP SCH (09:12)
[2021-10-06] MEDS: Chlorhexidine Rinse 15 ML MOUTHWASH MM SCH ×2 (09:13→22:30)
[2021-10-06] MEDS: Aspirin 81 MG TAB.CHEW PO SCH (09:13)
[2021-10-06] MEDS: Folic Acid 1 MG TABLET PO SCH (09:13)
[2021-10-06] MEDS: Vitamin B Complex/Vit C/Vit E 1 EACH TABLET PO SCH (09:13)
[2021-10-06] MEDS: *HR* HYDROcodone/Acet 5/325 mg TABLET PO PRN ×2 (09:13→16:56)
[2021-10-06] MEDS: Thiamine (B-1) 100 MG TABLET PO SCH (09:13)
[2021-10-06] MEDS: Gabapentin 100 MG CAPSULE PO SCH ×3 (09:14→22:30)
[2021-10-06] MEDS: NIFEdipine XL (24 HR) 60 MG TAB.ER.24 PO SCH (09:14)
[2021-10-06] MEDS: lisinopriL 20 MG TABLET PO SCH (09:14)
[2021-10-06 09:24] LABS: Carbon Dioxide 45 mEq/L (23-29)
[2021-10-06] MEDS ORDERED: acetaZOLAMIDE 375 MG in Water for inj. (sterile) 3.75 ML IVP SCH (12:00)
[2021-10-07] MEDS: Ipratropium/Albuterol Neb 3 ML IH SCH ×6 (04:05→23:19)
[2021-10-07 04:33] LABS: Hematocrit 49.8 % (37.5-50.1); Hemoglobin 15.4 g/dL (12.9-16.9); Mean Corpuscular HGB Conc 30.9 g/dL (31.6-35.5); Mean Corpuscular Hemoglobin 31.2 pg (28.0-33.3); Mean Corpuscular Volume 100.8 fL (83.0-100.0); Mean Platelet Volume 8.2 fL (9.4-12.4); Platelet Count 106 K/mcL (140-400); Red Blood Count 4.94 M/mcL (4.19-5.50); White Blood Count 6.4 K/mcL (4.3-11.1)
[2021-10-07] MEDS: *HR* Heparin 5,000 UNIT/ML VIAL SQ SCH ×3 (04:41→19:52)
[2021-10-07 04:56] LABS: BUN/Creatinine Ratio 25 (6-26); Blood Urea Nitrogen 16 mg/dL (8-23); Calcium 8.9 mg/dL (8.6-10.3); Carbon Dioxide 43 mEq/L (23-29); Chloride 88 mEq/L (98-107); Glucose 104 mg/dL (70-105); Osmolality,Calculated 277 (280-300); Sodium 133 mEq/L (136-145); eGFR For African Americans > 60 (> 60); eGFR For Non-African Americans > 60 (> 60)
[2021-10-07] MEDS: Budesonide/Formoterol 160/4.5 1 PUFF INH IH SCH ×2 (07:26→23:19)
[2021-10-07] MEDS: Aspirin 81 MG TAB.CHEW PO SCH (09:36)
[2021-10-07] MEDS: Thiamine (B-1) 100 MG TABLET PO SCH (09:36)
[2021-10-07] MEDS: Nicotine 21 MG PATCH.TD24 TD SCH (09:39)
[2021-10-07] MEDS: Vitamin B Complex/Vit C/Vit E 1 EACH TABLET PO SCH (09:39)
[2021-10-07] MEDS: Folic Acid 1 MG TABLET PO SCH (09:39)
[2021-10-07] MEDS: lisinopriL 20 MG TABLET PO SCH (09:39)
[2021-10-07] MEDS: Furosemide 40 MG TABLET PO SCH ×2 (09:39→15:57)
[2021-10-07] MEDS: NIFEdipine XL (24 HR) 60 MG TAB.ER.24 PO SCH (09:39)
[2021-10-07] MEDS: Gabapentin 100 MG CAPSULE PO SCH ×4 (09:39→19:52)
[2021-10-07] MEDS: Chlorhexidine Rinse 15 ML MOUTHWASH MM SCH (09:40)
[2021-10-07] MEDS ORDERED: Cefepime HCl 1,000 MG in 0.9 % Sodium Chloride 10 ML IVP SCH (11:00)
[2021-10-07] MEDS ORDERED: Vancomycin 2,000 MG/520 ML IV.SOLN IVPB ONE (11:02)
[2021-10-07] MEDS: MetroNIDAZOLE 500 MG/100 ML 500 MG/100 ML BAG IVPB SCH ×2 (12:21→19:52)
[2021-10-07 13:25] LABS: ABG Base Excess 14 mEq/L (-2 to 3); ABG HCO3 44 mEq/L (21-27); ABG Oxygen Saturation 95 % (95-98); ABG PCO2 76 mmHg (35-45); ABG PH 7.38 pH Units (7.32-7.45); ABG PO2 85 mmHg (85-104); ABG TCO2 47 mEq/L (20-26); Blood Gas VT 500 cc
[2021-10-07] MEDS: *HR* HYDROcodone/Acet 5/325 mg TABLET PO PRN (15:54)
[2021-10-07] MEDS: Cefepime HCl 2,000 MG in 0.9 % Sodium Chloride 10 ML IVP SCH (19:51)
[2021-10-08] MEDS ORDERED: Vancomycin 2,000 MG/520 ML IV.SOLN IVPB SCH
[2021-10-08 03:43] LABS: Hematocrit 46.1 % (37.5-50.1); Hemoglobin 14.7 g/dL (12.9-16.9); Mean Corpuscular HGB Conc 31.9 g/dL (31.6-35.5); Mean Corpuscular Hemoglobin 31.5 pg (28.0-33.3); Mean Corpuscular Volume 98.9 fL (83.0-100.0); Mean Platelet Volume 8.6 fL (9.4-12.4); Platelet Count 116 K/mcL (140-400); Red Blood Count 4.66 M/mcL (4.19-5.50); Red Cell Distribution Width 14.1 % (11.5-14.5); White Blood Count 8.3 K/mcL (4.3-11.1)
[2021-10-08] MEDS: Ipratropium/Albuterol Neb 3 ML IH SCH ×6 (03:49→22:53)
[2021-10-08 03:53] LABS: BUN/Creatinine Ratio 25 (6-26); Blood Urea Nitrogen 14 mg/dL (8-23); Calcium 7.4 mg/dL (8.6-10.3); Carbon Dioxide 36 mEq/L (23-29); Chloride 98 mEq/L (98-107); Glucose 87 mg/dL (70-105); Osmolality,Calculated 280 (280-300); Sodium 135 mEq/L (136-145); eGFR For African Americans > 60 (> 60); eGFR For Non-African Americans > 60 (> 60)
[2021-10-08] MEDS: Cefepime HCl 2,000 MG in 0.9 % Sodium Chloride 10 ML IVP SCH ×3 (05:16→22:32)
[2021-10-08] MEDS: *HR* Heparin 5,000 UNIT/ML VIAL SQ SCH ×3 (05:17→22:33)
[2021-10-08] MEDS: MetroNIDAZOLE 500 MG/100 ML 500 MG/100 ML BAG IVPB SCH ×3 (05:17→22:32)
[2021-10-08] MEDS: Nicotine 21 MG PATCH.TD24 TD SCH (07:21)
[2021-10-08] MEDS: NIFEdipine XL (24 HR) 60 MG TAB.ER.24 PO SCH (07:21)
[2021-10-08] MEDS: Gabapentin 100 MG CAPSULE PO SCH ×3 (07:21→22:32)
[2021-10-08] MEDS: Thiamine (B-1) 100 MG TABLET PO SCH (07:21)
[2021-10-08] MEDS: Vitamin B Complex/Vit C/Vit E 1 EACH TABLET PO SCH (07:21)
[2021-10-08] MEDS: lisinopriL 20 MG TABLET PO SCH (07:21)
[2021-10-08] MEDS: Folic Acid 1 MG TABLET PO SCH (07:21)
[2021-10-08] MEDS: Aspirin 81 MG TAB.CHEW PO SCH (07:22)
[2021-10-08] MEDS: Furosemide 40 MG TABLET PO SCH ×2 (07:22→17:16)
[2021-10-08] MEDS: Budesonide/Formoterol 160/4.5 1 PUFF INH IH SCH ×2 (07:36→22:53)
[2021-10-08] MEDS ORDERED: Iopamidol - 370 500 ML MLS IVP ONE (10:07)
[2021-10-08 11:37] LABS: Urine Collection Volume RANDOM mL
[2021-10-09] MEDS: Ipratropium/Albuterol Neb 3 ML IH SCH ×6 (03:43→23:43)
[2021-10-09] MEDS: Cefepime HCl 2,000 MG in 0.9 % Sodium Chloride 10 ML IVP SCH ×3 (04:52→21:30)
[2021-10-09] MEDS: MetroNIDAZOLE 500 MG/100 ML 500 MG/100 ML BAG IVPB SCH ×3 (04:52→21:30)
[2021-10-09] MEDS: *HR* Heparin 5,000 UNIT/ML VIAL SQ SCH ×3 (04:52→23:27)
[2021-10-09 05:54] LABS: Hematocrit 47.6 % (37.5-50.1); Hemoglobin 15.1 g/dL (12.9-16.9); Mean Corpuscular HGB Conc 31.7 g/dL (31.6-35.5); Mean Corpuscular Hemoglobin 31.5 pg (28.0-33.3); Mean Corpuscular Volume 99.2 fL (83.0-100.0); Mean Platelet Volume 8.5 fL (9.4-12.4); Red Blood Count 4.8 M/mcL (4.19-5.50); White Blood Count 6.6 K/mcL (4.3-11.1)
[2021-10-09 06:15] LABS: BUN/Creatinine Ratio 26 (6-26); Blood Urea Nitrogen 18 mg/dL (8-23); Calcium 8.4 mg/dL (8.6-10.3); Carbon Dioxide 40 mEq/L (23-29); Chloride 93 mEq/L (98-107); Glucose 99 mg/dL (70-105); Osmolality,Calculated 280 (280-300); Potassium 3.8 mEq/L (3.5-5.1); Sodium 134 mEq/L (136-145); eGFR For African Americans > 60 (> 60); eGFR For Non-African Americans > 60 (> 60)
[2021-10-09] MEDS: Budesonide/Formoterol 160/4.5 1 PUFF INH IH SCH ×2 (07:34→19:51)
[2021-10-09] MEDS: lisinopriL 10 MG TABLET PO SCH (08:22)
[2021-10-09] MEDS: Thiamine (B-1) 100 MG TABLET PO SCH (08:22)
[2021-10-09] MEDS: NIFEdipine XL (24 HR) 60 MG TAB.ER.24 PO SCH (08:22)
[2021-10-09] MEDS: Vitamin B Complex/Vit C/Vit E 1 EACH TABLET PO SCH (08:22)
[2021-10-09] MEDS: Folic Acid 1 MG TABLET PO SCH (08:22)
[2021-10-09] MEDS: Aspirin 81 MG TAB.CHEW PO SCH (08:23)
[2021-10-09] MEDS: Gabapentin 100 MG CAPSULE PO SCH ×3 (08:23→22:00)
[2021-10-09] MEDS: Nicotine 21 MG PATCH.TD24 TD SCH (08:23)
[2021-10-09] MEDS: Furosemide 40 MG TABLET PO SCH (08:23)
[2021-10-09 15:13] LABS: Adenovirus Not Detected (Not Detect); Bordetella Pertussis Not Detected (Not Detect); Chlamydophila pneumoniae Not Detected (Not Detect); Coronavirus 229E Not Detected (Not Detect); Coronavirus HKU1 Not Detected (Not Detect); Coronavirus NL63 Not Detected (Not Detect); Coronavirus OC43 Not Detected (Not Detect); Human Metapneumovirus Not Detected (Not Detect); Human Rhinovirus/Enterovirus Not Detected (Not Detect); Influenza A Subtype 2009 H1 Not Detected (Not Detect); Influenza B Not Detected (Not Detect); Mycoplasma pneumoniae Not Detected (Not Detect); Parainfluenza Virus 1 Not Detected (Not Detect); Parainfluenza Virus 2 Not Detected (Not Detect); Parainfluenza Virus 3 Not Detected (Not Detect); Parainfluenza Virus 4 Not Detected (Not Detect); Respiratory Syncytial Virus Not Detected (Not Detect); SARS-CoV-2 Not Detected (Not Detect)
[2021-10-10] MEDS: Ipratropium/Albuterol Neb 3 ML IH SCH ×6 (03:58→22:52)
[2021-10-10] MEDS: Cefepime HCl 2,000 MG in 0.9 % Sodium Chloride 10 ML IVP SCH ×3 (05:08→19:42)
[2021-10-10] MEDS: MetroNIDAZOLE 500 MG/100 ML 500 MG/100 ML BAG IVPB SCH ×3 (05:09→19:43)
[2021-10-10] MEDS: *HR* Heparin 5,000 UNIT/ML VIAL SQ SCH ×3 (05:10→21:15)
[2021-10-10 05:57] LABS: Hematocrit 46.3 % (37.5-50.1); Hemoglobin 14.6 g/dL (12.9-16.9); Mean Corpuscular HGB Conc 31.5 g/dL (31.6-35.5); Mean Corpuscular Hemoglobin 31.1 pg (28.0-33.3); Mean Corpuscular Volume 98.7 fL (83.0-100.0); Mean Platelet Volume 8.7 fL (9.4-12.4); Platelet Count 149 K/mcL (140-400); Red Blood Count 4.69 M/mcL (4.19-5.50); Red Cell Distribution Width 14.1 % (11.5-14.5); White Blood Count 4.7 K/mcL (4.3-11.1)
[2021-10-10 06:19] LABS: BUN/Creatinine Ratio 33 (6-26); Blood Urea Nitrogen 18 mg/dL (8-23); Calcium 7.6 mg/dL (8.6-10.3); Carbon Dioxide 35 mEq/L (23-29); Chloride 96 mEq/L (98-107); Glucose 94 mg/dL (70-105); Osmolality,Calculated 280 (280-300); Potassium 3.7 mEq/L (3.5-5.1); Sodium 134 mEq/L (136-145); eGFR For African Americans > 60 (> 60); eGFR For Non-African Americans > 60 (> 60)
[2021-10-10] MEDS: Budesonide/Formoterol 160/4.5 1 PUFF INH IH SCH ×2 (07:17→19:35)
[2021-10-10] MEDS: Nicotine 21 MG PATCH.TD24 TD SCH (07:44)
[2021-10-10] MEDS: NIFEdipine XL (24 HR) 60 MG TAB.ER.24 PO SCH (07:45)
[2021-10-10] MEDS: Gabapentin 100 MG CAPSULE PO SCH ×3 (07:46→19:43)
[2021-10-10] MEDS: Thiamine (B-1) 100 MG TABLET PO SCH (07:46)
[2021-10-10] MEDS: Folic Acid 1 MG TABLET PO SCH (07:46)
[2021-10-10] MEDS: Aspirin 81 MG TAB.CHEW PO SCH (07:46)
[2021-10-10] MEDS: lisinopriL 10 MG TABLET PO SCH (07:46)
[2021-10-10] MEDS: Vitamin B Complex/Vit C/Vit E 1 EACH TABLET PO SCH (07:46)
[2021-10-10] MEDS ORDERED: *HR* LORazepam 2 MG/ML VIAL IVP PRN (10:58)
[2021-10-10] MEDS: *HR* HYDROcodone/Acet 5/325 mg TABLET PO PRN (21:58)
[2021-10-10] MEDS ORDERED: E-Z-PAQUE (BARIUM SULF) SUSP 1 BOTTLE PO ONE (23:07)
[2021-10-10] MEDS ORDERED: E-Z-HD (BARIUM SULF) SUSPENSION PO ONE (23:07)
[2021-10-11] MEDS: Cefepime HCl 2,000 MG in 0.9 % Sodium Chloride 10 ML IVP SCH ×3 (03:47→19:59)
[2021-10-11] MEDS: MetroNIDAZOLE 500 MG/100 ML 500 MG/100 ML BAG IVPB SCH ×3 (03:48→19:59)
[2021-10-11] MEDS: Ipratropium/Albuterol Neb 3 ML IH SCH ×6 (04:04→23:16)
[2021-10-11 04:08] LABS: Hematocrit 48.7 % (37.5-50.1); Mean Corpuscular HGB Conc 30.8 g/dL (31.6-35.5); Mean Corpuscular Hemoglobin 31.4 pg (28.0-33.3); Mean Corpuscular Volume 102.1 fL (83.0-100.0); Mean Platelet Volume 8.8 fL (9.4-12.4); Platelet Count 170 K/mcL (140-400); Red Blood Count 4.77 M/mcL (4.19-5.50); Red Cell Distribution Width 14.1 % (11.5-14.5); White Blood Count 4.5 K/mcL (4.3-11.1)
[2021-10-11 04:29] LABS: BUN/Creatinine Ratio 29 (6-26); Blood Urea Nitrogen 16 mg/dL (8-23); Calcium 8.7 mg/dL (8.6-10.3); Carbon Dioxide 41 mEq/L (23-29); Chloride 94 mEq/L (98-107); Glucose 92 mg/dL (70-105); Osmolality,Calculated 281 (280-300); Potassium 4.6 mEq/L (3.5-5.1); Sodium 135 mEq/L (136-145); eGFR For African Americans > 60 (> 60); eGFR For Non-African Americans > 60 (> 60)
[2021-10-11] MEDS: *HR* Heparin 5,000 UNIT/ML VIAL SQ SCH ×3 (05:23→21:22)
[2021-10-11] MEDS: Budesonide/Formoterol 160/4.5 1 PUFF INH IH SCH ×2 (07:33→20:07)
[2021-10-11] MEDS: lisinopriL 10 MG TABLET PO SCH (07:53)
[2021-10-11] MEDS: Nicotine 21 MG PATCH.TD24 TD SCH (07:53)
[2021-10-11] MEDS: Thiamine (B-1) 100 MG TABLET PO SCH (07:53)
[2021-10-11] MEDS: Vitamin B Complex/Vit C/Vit E 1 EACH TABLET PO SCH (07:53)
[2021-10-11] MEDS: Folic Acid 1 MG TABLET PO SCH (07:53)
[2021-10-11] MEDS: Gabapentin 100 MG CAPSULE PO SCH ×3 (07:53→19:58)
[2021-10-11] MEDS: Aspirin 81 MG TAB.CHEW PO SCH (07:53)
[2021-10-11] MEDS: NIFEdipine XL (24 HR) 30 MG TAB.ER.24 PO SCH (07:53)
[2021-10-11] MEDS: *HR* HYDROcodone/Acet 5/325 mg TABLET PO PRN (19:58)
[2021-10-12 03:19] LABS: Hematocrit 44.4 % (37.5-50.1); Hemoglobin 13.8 g/dL (12.9-16.9); Mean Corpuscular HGB Conc 31.1 g/dL (31.6-35.5); Mean Corpuscular Hemoglobin 31.9 pg (28.0-33.3); Mean Corpuscular Volume 102.5 fL (83.0-100.0); Mean Platelet Volume 8.8 fL (9.4-12.4); Platelet Count 150 K/mcL (140-400); Red Blood Count 4.33 M/mcL (4.19-5.50)
[2021-10-12 03:29] LABS: BUN/Creatinine Ratio 31 (6-26); Blood Urea Nitrogen 16 mg/dL (8-23); Calcium 8.5 mg/dL (8.6-10.3); Carbon Dioxide 39 mEq/L (23-29); Chloride 94 mEq/L (98-107); Glucose 96 mg/dL (70-105); Osmolality,Calculated 279 (280-300); Potassium 4.5 mEq/L (3.5-5.1); Sodium 134 mEq/L (136-145); eGFR For African Americans > 60 (> 60); eGFR For Non-African Americans > 60 (> 60)
[2021-10-12] MEDS: Cefepime HCl 2,000 MG in 0.9 % Sodium Chloride 10 ML IVP SCH (03:45)
[2021-10-12] MEDS: MetroNIDAZOLE 500 MG/100 ML 500 MG/100 ML BAG IVPB SCH (03:45)
[2021-10-12] MEDS: Ipratropium/Albuterol Neb 3 ML IH SCH ×6 (03:53→23:14)
[2021-10-12] MEDS: *HR* Heparin 5,000 UNIT/ML VIAL SQ SCH ×3 (06:07→23:21)
[2021-10-12] MEDS: Budesonide/Formoterol 160/4.5 1 PUFF INH IH SCH ×2 (07:19→20:27)
[2021-10-12] MEDS: Nicotine 21 MG PATCH.TD24 TD SCH (07:52)
[2021-10-12] MEDS: Thiamine (B-1) 100 MG TABLET PO SCH (07:52)
[2021-10-12] MEDS: Folic Acid 1 MG TABLET PO SCH (07:52)
[2021-10-12] MEDS: Aspirin 81 MG TAB.CHEW PO SCH (07:53)
[2021-10-12] MEDS: lisinopriL 10 MG TABLET PO SCH (07:53)
[2021-10-12] MEDS: Gabapentin 100 MG CAPSULE PO SCH ×3 (07:53→19:23)
[2021-10-12] MEDS: *HR* HYDROcodone/Acet 5/325 mg TABLET PO PRN ×3 (07:53→23:23)
[2021-10-12] MEDS: NIFEdipine XL (24 HR) 30 MG TAB.ER.24 PO SCH (07:53)
[2021-10-12] MEDS: Vitamin B Complex/Vit C/Vit E 1 EACH TABLET PO SCH (07:53)
[2021-10-13] MEDS: Ipratropium/Albuterol Neb 3 ML IH SCH ×6 (03:56→23:05)
[2021-10-13] MEDS: *HR* HYDROcodone/Acet 5/325 mg TABLET PO PRN ×3 (05:12→18:35)
[2021-10-13] MEDS: *HR* Heparin 5,000 UNIT/ML VIAL SQ SCH ×3 (07:13→20:31)
[2021-10-13] MEDS: Budesonide/Formoterol 160/4.5 1 PUFF INH IH SCH ×2 (07:37→19:46)
[2021-10-13] MEDS: NIFEdipine XL (24 HR) 30 MG TAB.ER.24 PO SCH (08:41)
[2021-10-13] MEDS: Aspirin 81 MG TAB.CHEW PO SCH (08:41)
[2021-10-13] MEDS: Folic Acid 1 MG TABLET PO SCH (08:41)
[2021-10-13] MEDS: Gabapentin 100 MG CAPSULE PO SCH ×3 (08:41→20:29)
[2021-10-13] MEDS: Vitamin B Complex/Vit C/Vit E 1 EACH TABLET PO SCH (08:41)
[2021-10-13] MEDS: Nicotine 21 MG PATCH.TD24 TD SCH (08:41)
[2021-10-13] MEDS: lisinopriL 10 MG TABLET PO SCH ×2 (08:41→10:30)
[2021-10-13] MEDS: Thiamine (B-1) 100 MG TABLET PO SCH (08:41)
[2021-10-13 11:44] LABS: Hematocrit 46.4 % (37.5-50.1); Hemoglobin 14.2 g/dL (12.9-16.9); Mean Corpuscular HGB Conc 30.6 g/dL (31.6-35.5); Mean Corpuscular Hemoglobin 31.5 pg (28.0-33.3); Mean Corpuscular Volume 102.9 fL (83.0-100.0); Mean Platelet Volume 8.8 fL (9.4-12.4); Platelet Count 169 K/mcL (140-400); Red Blood Count 4.51 M/mcL (4.19-5.50); Red Cell Distribution Width 14.1 % (11.5-14.5); White Blood Count 5.2 K/mcL (4.3-11.1)
[2021-10-13 12:05] LABS: BUN/Creatinine Ratio 32 (6-26); Blood Urea Nitrogen 16 mg/dL (8-23); Calcium 8.9 mg/dL (8.6-10.3); Carbon Dioxide 41 mEq/L (23-29); Chloride 92 mEq/L (98-107); Glucose 102 mg/dL (70-105); Osmolality,Calculated 277 (280-300); Potassium 5.1 mEq/L (3.5-5.1); Sodium 133 mEq/L (136-145); eGFR For African Americans > 60 (> 60); eGFR For Non-African Americans > 60 (> 60)
[2021-10-14] MEDS: *HR* HYDROcodone/Acet 5/325 mg TABLET PO PRN ×3 (00:36→22:53)
[2021-10-14] MEDS: Ipratropium/Albuterol Neb 3 ML IH SCH ×6 (03:56→23:15)
[2021-10-14] MEDS: *HR* Heparin 5,000 UNIT/ML VIAL SQ SCH ×3 (06:13→20:46)
[2021-10-14] MEDS: Budesonide/Formoterol 160/4.5 1 PUFF INH IH SCH ×2 (08:49→20:12)
[2021-10-14] MEDS ORDERED: Sulfamethoxazole/Trimeth DS 1 EACH TABLET PO SCH (10:30)
[2021-10-14] MEDS: NIFEdipine XL (24 HR) 30 MG TAB.ER.24 PO SCH (10:44)
[2021-10-14] MEDS: Nicotine 21 MG PATCH.TD24 TD SCH (10:44)
[2021-10-14] MEDS: Folic Acid 1 MG TABLET PO SCH (10:45)
[2021-10-14] MEDS: Gabapentin 100 MG CAPSULE PO SCH ×3 (10:45→20:46)
[2021-10-14] MEDS: Thiamine (B-1) 100 MG TABLET PO SCH (10:45)
[2021-10-14] MEDS: Aspirin 81 MG TAB.CHEW PO SCH (10:45)
[2021-10-14] MEDS: lisinopriL 10 MG TABLET PO SCH (10:45)
[2021-10-14] MEDS: Vitamin B Complex/Vit C/Vit E 1 EACH TABLET PO SCH (10:45)
[2021-10-14 11:42] LABS: BUN/Creatinine Ratio 24 (6-26); Blood Urea Nitrogen 11 mg/dL (8-23); Calcium 8.9 mg/dL (8.6-10.3); Carbon Dioxide 41 mEq/L (23-29); Chloride 92 mEq/L (98-107); Glucose 109 mg/dL (70-105); Osmolality,Calculated 274 (280-300); Potassium 5.2 mEq/L (3.5-5.1); Sodium 132 mEq/L (136-145); eGFR For African Americans > 60 (> 60); eGFR For Non-African Americans > 60 (> 60)
[2021-10-14] MEDS: cefTAZidime 2,000 MG in 0.9 % Sodium Chloride Mini Bag 100 ML IVPB SCH (14:59)
[2021-10-14 18:28] LABS: BUN/Creatinine Ratio 29 (6-26); Blood Urea Nitrogen 14 mg/dL (8-23); Carbon Dioxide 43 mEq/L (23-29); Chloride 91 mEq/L (98-107); Glucose 140 mg/dL (70-105); Osmolality,Calculated 277 (280-300); Potassium 5.2 mEq/L (3.5-5.1); Sodium 132 mEq/L (136-145); eGFR For African Americans > 60 (> 60); eGFR For Non-African Americans > 60 (> 60)
[2021-10-14 20:27] LABS: ABG Base Excess 11 mEq/L (-2 to 3); ABG HCO3 44 mEq/L (21-27); ABG Oxygen Saturation 92 % (95-98); ABG PCO2 98 mmHg (35-45); ABG PH 7.25 pH Units (7.32-7.45); ABG PO2 80 mmHg (85-104); ABG TCO2 47 mEq/L (20-26); Blood Gas Modality avaps; Blood Gas VT 500 cc
[2021-10-15] MEDS: cefTAZidime 2,000 MG in 0.9 % Sodium Chloride Mini Bag 100 ML IVPB SCH ×4 (00:18→23:59)
[2021-10-15] MEDS: Ipratropium/Albuterol Neb 3 ML IH SCH ×6 (03:24→23:33)
[2021-10-15] MEDS: *HR* Heparin 5,000 UNIT/ML VIAL SQ SCH ×3 (05:30→21:14)
[2021-10-15] MEDS: *HR* HYDROcodone/Acet 5/325 mg TABLET PO PRN ×3 (05:31→21:13)
[2021-10-15] MEDS: Budesonide/Formoterol 160/4.5 1 PUFF INH IH SCH ×2 (07:11→20:09)
[2021-10-15] MEDS: Aspirin 81 MG TAB.CHEW PO SCH (08:51)
[2021-10-15] MEDS: NIFEdipine XL (24 HR) 30 MG TAB.ER.24 PO SCH (08:52)
[2021-10-15] MEDS: Nicotine 21 MG PATCH.TD24 TD SCH (08:52)
[2021-10-15] MEDS: lisinopriL 10 MG TABLET PO SCH (08:52)
[2021-10-15] MEDS: Folic Acid 1 MG TABLET PO SCH (08:52)
[2021-10-15] MEDS: Thiamine (B-1) 100 MG TABLET PO SCH (08:52)
[2021-10-15] MEDS: Gabapentin 100 MG CAPSULE PO SCH ×3 (08:52→21:13)
[2021-10-15] MEDS: Vitamin B Complex/Vit C/Vit E 1 EACH TABLET PO SCH (08:52)
[2021-10-15 09:55] LABS: BUN/Creatinine Ratio 24 (6-26); Blood Urea Nitrogen 12 mg/dL (8-23); Calcium 9.2 mg/dL (8.6-10.3); Carbon Dioxide 43 mEq/L (23-29); Chloride 89 mEq/L (98-107); Glucose 110 mg/dL (70-105); Osmolality,Calculated 274 (280-300); Sodium 132 mEq/L (136-145); eGFR For African Americans > 60 (> 60); eGFR For Non-African Americans > 60 (> 60)
[2021-10-15 10:19] LABS: ABG Base Excess 9 mEq/L (-2 to 3); ABG HCO3 38 mEq/L (21-27); ABG Oxygen Saturation 92 % (95-98); ABG PCO2 74 mmHg (35-45); ABG PH 7.33 pH Units (7.32-7.45); ABG PO2 71 mmHg (85-104); ABG TCO2 41 mEq/L (20-26)
[2021-10-15] MEDS ORDERED: *HR* HYDROcodone/Acet 10/325 mg TABLET PO ONE (23:50)
[2021-10-16] MEDS: *HR* HYDROcodone/Acet 5/325 mg TABLET PO PRN ×2 (03:53→14:53)
[2021-10-16] MEDS: Ipratropium/Albuterol Neb 3 ML IH SCH ×6 (04:31→23:40)
[2021-10-16] MEDS ORDERED: *HR* OxyCODONE Immed Rel 5 MG TABLET PO ONE (05:02)
[2021-10-16] MEDS: *HR* Heparin 5,000 UNIT/ML VIAL SQ SCH ×3 (05:07→21:03)
[2021-10-16] MEDS: Budesonide/Formoterol 160/4.5 1 PUFF INH IH SCH ×2 (07:30→20:38)
[2021-10-16] MEDS ORDERED: Furosemide 40 MG/4 ML VIAL IVP ONE (10:11)
[2021-10-16] MEDS: Folic Acid 1 MG TABLET PO SCH (10:23)
[2021-10-16] MEDS: Thiamine (B-1) 100 MG TABLET PO SCH (10:23)
[2021-10-16] MEDS: Nicotine 21 MG PATCH.TD24 TD SCH (10:23)
[2021-10-16] MEDS: lisinopriL 10 MG TABLET PO SCH (10:23)
[2021-10-16] MEDS: Vitamin B Complex/Vit C/Vit E 1 EACH TABLET PO SCH (10:23)
[2021-10-16] MEDS: Aspirin 81 MG TAB.CHEW PO SCH (10:23)
[2021-10-16] MEDS: NIFEdipine XL (24 HR) 30 MG TAB.ER.24 PO SCH (10:23)
[2021-10-16] MEDS: Gabapentin 100 MG CAPSULE PO SCH ×3 (10:23→21:03)
[2021-10-16] MEDS: cefTAZidime 2,000 MG in 0.9 % Sodium Chloride Mini Bag 100 ML IVPB SCH ×2 (10:25→21:02)
[2021-10-17] MEDS: Ipratropium/Albuterol Neb 3 ML IH SCH ×6 (04:03→23:21)
[2021-10-17] MEDS: *HR* HYDROcodone/Acet 5/325 mg TABLET PO PRN ×3 (05:08→19:49)
[2021-10-17] MEDS: cefTAZidime 2,000 MG in 0.9 % Sodium Chloride Mini Bag 100 ML IVPB SCH ×3 (05:08→19:48)
[2021-10-17] MEDS: *HR* Heparin 5,000 UNIT/ML VIAL SQ SCH ×3 (05:09→19:49)
[2021-10-17] MEDS: Budesonide/Formoterol 160/4.5 1 PUFF INH IH SCH ×2 (07:18→20:08)
[2021-10-17] MEDS: Gabapentin 100 MG CAPSULE PO SCH ×3 (08:24→19:49)
[2021-10-17] MEDS: Folic Acid 1 MG TABLET PO SCH (08:24)
[2021-10-17] MEDS: lisinopriL 10 MG TABLET PO SCH (08:24)
[2021-10-17] MEDS: Nicotine 21 MG PATCH.TD24 TD SCH (08:25)
[2021-10-17] MEDS: Thiamine (B-1) 100 MG TABLET PO SCH (08:25)
[2021-10-17] MEDS: Vitamin B Complex/Vit C/Vit E 1 EACH TABLET PO SCH (08:25)
[2021-10-17] MEDS: Aspirin 81 MG TAB.CHEW PO SCH (08:25)
[2021-10-17] MEDS: NIFEdipine XL (24 HR) 30 MG TAB.ER.24 PO SCH (08:25)
[2021-10-17 08:48] LABS: BUN/Creatinine Ratio 18 (6-26); Blood Urea Nitrogen 8 mg/dL (8-23); Calcium 9.1 mg/dL (8.6-10.3); Carbon Dioxide 44 mEq/L (23-29); Chloride 88 mEq/L (98-107); Glucose 86 mg/dL (70-105); Osmolality,Calculated 276 (280-300); Potassium 4.4 mEq/L (3.5-5.1); Sodium 134 mEq/L (136-145); eGFR For African Americans > 60 (> 60); eGFR For Non-African Americans > 60 (> 60)
[2021-10-18] MEDS: cefTAZidime 2,000 MG in 0.9 % Sodium Chloride Mini Bag 100 ML IVPB SCH ×3 (03:33→19:54)
[2021-10-18] MEDS: *HR* HYDROcodone/Acet 5/325 mg TABLET PO PRN ×4 (03:33→22:29)
[2021-10-18] MEDS: Ipratropium/Albuterol Neb 3 ML IH SCH ×5 (03:46→19:48)
[2021-10-18 05:20] LABS: BUN/Creatinine Ratio 20 (6-26); Blood Urea Nitrogen 9 mg/dL (8-23); Calcium 9.1 mg/dL (8.6-10.3); Carbon Dioxide 40 mEq/L (23-29); Chloride 91 mEq/L (98-107); Glucose 107 mg/dL (70-105); Osmolality,Calculated 279 (280-300); Potassium 4.5 mEq/L (3.5-5.1); Sodium 135 mEq/L (136-145); eGFR For African Americans > 60 (> 60); eGFR For Non-African Americans > 60 (> 60)
[2021-10-18] MEDS: *HR* Heparin 5,000 UNIT/ML VIAL SQ SCH ×3 (06:21→19:56)
[2021-10-18] MEDS: Budesonide/Formoterol 160/4.5 1 PUFF INH IH SCH ×2 (07:32→19:52)
[2021-10-18] MEDS: NIFEdipine XL (24 HR) 30 MG TAB.ER.24 PO SCH (08:03)
[2021-10-18] MEDS: Folic Acid 1 MG TABLET PO SCH (08:03)
[2021-10-18] MEDS: Nicotine 21 MG PATCH.TD24 TD SCH (08:04)
[2021-10-18] MEDS: lisinopriL 10 MG TABLET PO SCH (08:04)
[2021-10-18] MEDS: Thiamine (B-1) 100 MG TABLET PO SCH (08:04)
[2021-10-18] MEDS: Aspirin 81 MG TAB.CHEW PO SCH (08:04)
[2021-10-18] MEDS: Gabapentin 100 MG CAPSULE PO SCH ×3 (08:04→19:56)
[2021-10-18] MEDS: Vitamin B Complex/Vit C/Vit E 1 EACH TABLET PO SCH (08:04)
[2021-10-18] MEDS: Furosemide 40 MG TABLET PO SCH ×2 (12:32→16:24)
[2021-10-19] MEDS: Ipratropium/Albuterol Neb 3 ML IH SCH ×7 (00:06→23:18)
[2021-10-19 02:25] LABS: BUN/Creatinine Ratio 21 (6-26); Blood Urea Nitrogen 11 mg/dL (8-23); Calcium 9.1 mg/dL (8.6-10.3); Carbon Dioxide 40 mEq/L (23-29); Chloride 90 mEq/L (98-107); Glucose 97 mg/dL (70-105); Osmolality,Calculated 277 (280-300); Potassium 4.5 mEq/L (3.5-5.1); Sodium 134 mEq/L (136-145); eGFR For African Americans > 60 (> 60); eGFR For Non-African Americans > 60 (> 60)
[2021-10-19] MEDS: *HR* HYDROcodone/Acet 5/325 mg TABLET PO PRN ×2 (04:54→19:26)
[2021-10-19] MEDS: *HR* Heparin 5,000 UNIT/ML VIAL SQ SCH ×3 (04:55→21:10)
[2021-10-19] MEDS: Budesonide/Formoterol 160/4.5 1 PUFF INH IH SCH ×2 (07:28→19:44)
[2021-10-19] MEDS: Furosemide 40 MG TABLET PO SCH ×2 (09:11→16:10)
[2021-10-19] MEDS: lisinopriL 10 MG TABLET PO SCH (09:12)
[2021-10-19] MEDS: Vitamin B Complex/Vit C/Vit E 1 EACH TABLET PO SCH (09:12)
[2021-10-19] MEDS: Aspirin 81 MG TAB.CHEW PO SCH (09:12)
[2021-10-19] MEDS: Folic Acid 1 MG TABLET PO SCH (09:12)
[2021-10-19] MEDS: NIFEdipine XL (24 HR) 30 MG TAB.ER.24 PO SCH (09:12)
[2021-10-19] MEDS: Gabapentin 100 MG CAPSULE PO SCH ×3 (09:12→19:26)
[2021-10-19] MEDS: Thiamine (B-1) 100 MG TABLET PO SCH (09:12)
[2021-10-19] MEDS: Nicotine 21 MG PATCH.TD24 TD SCH (09:13)
[2021-10-20] MEDS: *HR* HYDROcodone/Acet 5/325 mg TABLET PO PRN ×4 (01:25→23:54)
[2021-10-20] MEDS: Ipratropium/Albuterol Neb 3 ML IH SCH ×6 (04:44→23:50)
[2021-10-20] MEDS: *HR* Heparin 5,000 UNIT/ML VIAL SQ SCH ×3 (05:58→19:51)
[2021-10-20] MEDS: Budesonide/Formoterol 160/4.5 1 PUFF INH IH SCH ×2 (07:24→20:00)
[2021-10-20] MEDS: NIFEdipine XL (24 HR) 30 MG TAB.ER.24 PO SCH (07:25)
[2021-10-20] MEDS: Aspirin 81 MG TAB.CHEW PO SCH (07:25)
[2021-10-20] MEDS: Thiamine (B-1) 100 MG TABLET PO SCH (07:25)
[2021-10-20] MEDS: Folic Acid 1 MG TABLET PO SCH (07:26)
[2021-10-20] MEDS: lisinopriL 10 MG TABLET PO SCH (07:26)
[2021-10-20] MEDS: Furosemide 40 MG TABLET PO SCH ×2 (07:26→15:05)
[2021-10-20] MEDS: Gabapentin 100 MG CAPSULE PO SCH ×3 (07:26→19:51)
[2021-10-20] MEDS: Vitamin B Complex/Vit C/Vit E 1 EACH TABLET PO SCH (07:26)
[2021-10-20] MEDS: Nicotine 21 MG PATCH.TD24 TD SCH (07:26)
[2021-10-21] MEDS: Ipratropium/Albuterol Neb 3 ML IH SCH ×6 (04:24→23:14)
[2021-10-21] MEDS: *HR* Heparin 5,000 UNIT/ML VIAL SQ SCH ×3 (05:51→20:46)
[2021-10-21] MEDS: Budesonide/Formoterol 160/4.5 1 PUFF INH IH SCH ×2 (07:15→20:12)
[2021-10-21] MEDS: *HR* HYDROcodone/Acet 5/325 mg TABLET PO PRN ×3 (08:14→22:33)
[2021-10-21] MEDS: Gabapentin 100 MG CAPSULE PO SCH ×3 (08:14→20:46)
[2021-10-21] MEDS: Vitamin B Complex/Vit C/Vit E 1 EACH TABLET PO SCH (08:14)
[2021-10-21] MEDS: Aspirin 81 MG TAB.CHEW PO SCH (08:14)
[2021-10-21] MEDS: Folic Acid 1 MG TABLET PO SCH (08:14)
[2021-10-21] MEDS: Thiamine (B-1) 100 MG TABLET PO SCH (08:14)
[2021-10-21] MEDS: Furosemide 40 MG TABLET PO SCH ×2 (08:14→16:31)
[2021-10-21] MEDS: lisinopriL 10 MG TABLET PO SCH (08:15)
[2021-10-21] MEDS: NIFEdipine XL (24 HR) 30 MG TAB.ER.24 PO SCH (08:15)
[2021-10-21] MEDS: Nicotine 21 MG PATCH.TD24 TD SCH (08:15)
[2021-10-22] MEDS: Ipratropium/Albuterol Neb 3 ML IH SCH ×6 (03:41→23:00)
[2021-10-22] MEDS: *HR* HYDROcodone/Acet 5/325 mg TABLET PO PRN ×3 (05:12→18:14)
[2021-10-22] MEDS: *HR* Heparin 5,000 UNIT/ML VIAL SQ SCH ×3 (05:55→20:10)
[2021-10-22] MEDS: Budesonide/Formoterol 160/4.5 1 PUFF INH IH SCH ×2 (07:20→19:43)
[2021-10-22] MEDS: Aspirin 81 MG TAB.CHEW PO SCH (08:33)
[2021-10-22] MEDS: Folic Acid 1 MG TABLET PO SCH (08:33)
[2021-10-22] MEDS: Gabapentin 100 MG CAPSULE PO SCH ×3 (08:33→20:10)
[2021-10-22] MEDS: Thiamine (B-1) 100 MG TABLET PO SCH (08:33)
[2021-10-22] MEDS: NIFEdipine XL (24 HR) 30 MG TAB.ER.24 PO SCH (08:33)
[2021-10-22] MEDS: Furosemide 40 MG TABLET PO SCH ×2 (08:34→16:11)
[2021-10-22] MEDS: Nicotine 21 MG PATCH.TD24 TD SCH (08:34)
[2021-10-22] MEDS: Vitamin B Complex/Vit C/Vit E 1 EACH TABLET PO SCH (08:34)
[2021-10-22] MEDS: lisinopriL 10 MG TABLET PO SCH (08:34)
[2021-10-23] MEDS: *HR* HYDROcodone/Acet 5/325 mg TABLET PO PRN ×4 (00:09→20:12)
[2021-10-23] MEDS: Ipratropium/Albuterol Neb 3 ML IH SCH ×6 (04:26→23:15)
[2021-10-23] MEDS: *HR* Heparin 5,000 UNIT/ML VIAL SQ SCH ×3 (06:02→20:12)
[2021-10-23] MEDS: Budesonide/Formoterol 160/4.5 1 PUFF INH IH SCH ×2 (07:08→19:42)
[2021-10-23] MEDS: Aspirin 81 MG TAB.CHEW PO SCH (08:35)
[2021-10-23] MEDS: lisinopriL 10 MG TABLET PO SCH (08:35)
[2021-10-23] MEDS: Furosemide 40 MG TABLET PO SCH (08:35)
[2021-10-23] MEDS: NIFEdipine XL (24 HR) 30 MG TAB.ER.24 PO SCH (08:35)
[2021-10-23] MEDS: Vitamin B Complex/Vit C/Vit E 1 EACH TABLET PO SCH (08:35)
[2021-10-23] MEDS: Folic Acid 1 MG TABLET PO SCH (08:35)
[2021-10-23] MEDS: Thiamine (B-1) 100 MG TABLET PO SCH (08:35)
[2021-10-23] MEDS: Gabapentin 100 MG CAPSULE PO SCH ×3 (08:36→20:12)
[2021-10-23] MEDS: Nicotine 21 MG PATCH.TD24 TD SCH (08:36)
[2021-10-24] MEDS: *HR* HYDROcodone/Acet 5/325 mg TABLET PO PRN ×4 (02:15→22:06)
[2021-10-24] MEDS: Ipratropium/Albuterol Neb 3 ML IH SCH ×6 (04:01→19:36)
[2021-10-24] MEDS: *HR* Heparin 5,000 UNIT/ML VIAL SQ SCH ×3 (06:05→22:05)
[2021-10-24] MEDS: Budesonide/Formoterol 160/4.5 1 PUFF INH IH SCH ×3 (07:29→19:36)
[2021-10-24] MEDS: Aspirin 81 MG TAB.CHEW PO SCH (08:45)
[2021-10-24] MEDS: lisinopriL 10 MG TABLET PO SCH (08:45)
[2021-10-24] MEDS: Thiamine (B-1) 100 MG TABLET PO SCH (08:45)
[2021-10-24] MEDS: Furosemide 40 MG TABLET PO SCH (08:45)
[2021-10-24] MEDS: NIFEdipine XL (24 HR) 30 MG TAB.ER.24 PO SCH (08:45)
[2021-10-24] MEDS: Gabapentin 100 MG CAPSULE PO SCH ×3 (08:45→19:54)
[2021-10-24] MEDS: Vitamin B Complex/Vit C/Vit E 1 EACH TABLET PO SCH (08:45)
[2021-10-24] MEDS: Folic Acid 1 MG TABLET PO SCH (08:45)
[2021-10-24] MEDS: Nicotine 21 MG PATCH.TD24 TD SCH (08:46)
[2021-10-25] MEDS: Ipratropium/Albuterol Neb 3 ML IH SCH ×5 (03:36→15:29)
[2021-10-25] MEDS: *HR* HYDROcodone/Acet 5/325 mg TABLET PO PRN ×3 (04:18→16:48)
[2021-10-25] MEDS: *HR* Heparin 5,000 UNIT/ML VIAL SQ SCH ×2 (04:18→16:48)
[2021-10-25] MEDS: Budesonide/Formoterol 160/4.5 1 PUFF INH IH SCH (07:50)
[2021-10-25] MEDS: Aspirin 81 MG TAB.CHEW PO SCH (10:19)
[2021-10-25] MEDS: Gabapentin 100 MG CAPSULE PO SCH ×2 (10:19→16:49)
[2021-10-25] MEDS: Furosemide 40 MG TABLET PO SCH (10:19)
[2021-10-25] MEDS: Vitamin B Complex/Vit C/Vit E 1 EACH TABLET PO SCH (10:19)
[2021-10-25] MEDS: lisinopriL 10 MG TABLET PO SCH (10:19)
[2021-10-25] MEDS: Folic Acid 1 MG TABLET PO SCH (10:19)
[2021-10-25] MEDS: Thiamine (B-1) 100 MG TABLET PO SCH (10:19)
[2021-10-25] MEDS: NIFEdipine XL (24 HR) 30 MG TAB.ER.24 PO SCH (10:19)
[2021-10-25] MEDS: Nicotine 21 MG PATCH.TD24 TD SCH (10:20)
[2021-10-25 10:39] VITALS: TEMP 98.7
[2021-10-25 14:04] LABS: Influenza A PCR Negative (Negative); Influenza B PCR Negative (Negative); Resp. Syncytial Virus PCR Negative (Negative)
[2021-10-25 14:12] LABS: SARS-CoV-2 by PCR (In House) Negative (Negative)
[2021-10-25 14:20] VITALS: BP 115/67; PULSE 86
[2021-10-25 15:31] VITALS: O2SAT 95
== END 2021-10-25 18:55 | DRG 291 ==
LOC: EMEROOARM 17:02 → 2NNU 17:02 → SUATTDRO 21:33 → 2NNU 22:40 → SUATTDRO 10-02 21:21 → 2ANU 10-04 15:09
PROVIDERS: ADMIT Internal Medicine; ATTEND Internal Medicine